=== PATIENT | male | born 1955 | race Caucasian/White ===

== ENCOUNTER 2016-11-21 14:37 | Inpatient (IN) ==
[2016-11-21] MEDS ORDERED: TORADOL IVP STA (14:43)
[2016-11-21] MEDS ORDERED: ATROPINE SULFATE PFS IVP PRN (14:44)
[2016-11-21] MEDS ORDERED: TYLENOL PO PRN (14:44)
[2016-11-21] MEDS ORDERED: MORPHINE 4 MG/ML SYRINGE IVP PRN (14:44)
[2016-11-21] MEDS ORDERED: NITROSTAT SL PRN (14:44)
[2016-11-21] MEDS ORDERED: VISTARIL INJ IM PRN (14:44)
[2016-11-21 14:46] LABS: ABG BASE EXCESS 4 (-2.0-2.0); ABG HCO3 28.5 (22.0-26.0); ABG PCO2 41.9 mmHg (35-45); ABG PH 7.441 (7.35-7.45); ABG TCO2 30 (22.0-28.0)
[2016-11-21] MEDS ORDERED: DECADRON 4 MG/ML SDV IM STA (14:46)
[2016-11-21] MEDS ORDERED: ROCEPHIN 1 GM in SODIUM CHLORIDE 50 ML IV STA (14:47)
[2016-11-21] MEDS: DEXTROSE 5%-1/2NS IV SOLUTION 1,000 ML IV SCH (15:39)
[2016-11-21 15:50] LABS: BASOPHILS # (AUTO) 0.1 K/uL (0-0.2); BASOPHILS % (AUTO) 0.5 % (0.0-3.0); EOSINOPHILS # (AUTO) 0.7 K/ul (0.0-0.7); EOSINOPHILS % (AUTO) 6.4 % (0.0-7.0); HEMATOCRIT 25.9 % (42.0-52.0); HEMOGLOBIN 8.6 g/dl (14.0-18.0); IMMATURE GRANULOCYTE % (AUTO) 1.7 % (0.0-5.0); LYMPHOCYTES # (AUTO) 1.3 K/uL (0.60-3.4); LYMPHOCYTES % (AUTO) 12.4 (10.0-50.0); MEAN CORPUSCULAR HEMOGLOBIN 29.9 pg (27.0-31.0); MEAN CORPUSCULAR HGB CONC 33.2 (31.8-35.4); MEAN CORPUSCULAR VOLUME 89.9 fl (80.0-94.0); MONOCYTES % (AUTO) 9.4 (0-10); NEUTROPHILS # (AUTO) 7.3 K/ul (2.0-6.9); NEUTROPHILS % (AUTO) 69.6; PLATELET COUNT 396 10^3/uL (140-440); RED BLOOD COUNT 2.88 10^6/ul (4.70-6.10); WHITE BLOOD COUNT 10.44 K/ul (4.2-10.2)
[2016-11-21] MEDS ORDERED: NON-FORMULARY MEDICATION (Guaifenesin [Mucinex] 1,200 MG) PO PRN ×22 (16:16)
[2016-11-21] MEDS ORDERED: PROAIR HFA IH PRN (16:16)
[2016-11-21] MEDS ORDERED: OXYCODONE PO PRN (16:16)
[2016-11-21] MEDS ORDERED: MUCINEX PO PRN (16:26)
[2016-11-21 16:33] LABS: ALBUMIN 2.6 g/dL (3.4-5.0); ALBUMIN/GLOBULIN RATIO 0.72; ANION GAP 12.7; BILIRUBIN,TOTAL 0.79 mg/dL (0.00-1.20); BUN/CREATININE RATIO 8.97; CALCIUM 9.2 mg/dL (8.2-10.2); CREATININE 0.78 mg/dL (0.60-1.10); POTASSIUM 3.7 mmol/L (3.5-5.1); TOTAL PROTEIN 6.2 g/dL (5.8-8.1); TROPONIN I 0.049 ng/ml (0.0000-0.4000)
--- NOTE | 2016-11-21 16:38 | DI ---
EXAM: Single frontal view of the chest HISTORY: Cough with pleuritic pain. COMPARISON: None FINDINGS: Cardiomediastinal silhouette is upper limit of normal. Sternotomy wires are present. The re is no pneumothorax. There is mild blunting the costophrenic angles with linear left lower lobe f ocal fibrosis. There is no acute consolidation. Minimal left lower lobe ground-glass is identified . There is left-sided pleural thickening, best seen laterally. The osseous structures are unremark able. IMPRESSION: 1. No acute consolidation with changes suggestive of chronic obstructive pulmonary disease and mini mal left lower lobe fibrosis. Left pleural thickening may represent fibrosis versus effusion. 2. Minimal left lower lobe ground-glass may represent atelectasis versus infection.
[2016-11-21] MEDS: XOPENEX 1.25 MG NEB SCH ×2 (17:08→23:14)
[2016-11-21 17:26] VITALS: BMI 25.9
[2016-11-21] MEDS: PROTONIX PO SCH (18:37)
[2016-11-21] MEDS: COLACE PO SCH ×2 (18:37→20:49)
[2016-11-21 19:58] LABS: BILIRUBIN,URINE Negative (NEGATIVE); KETONES,URINE Negative (NEGATIVE); LEUKOCYTE ESTERASE ,URINE Negative (NEGATIVE); NITRITE,URINE Negative (NEGATIVE); PH,URINE 6.5 (5-9); PROTEIN,URINE Negative (NEGATIVE); URINE, BLOOD Negative (NEGATIVE)
[2016-11-21 19:59] LABS: ADD URINE MICROSCOPIC NO
[2016-11-21] MEDS ORDERED: FISH OIL PO SCH (21:00)
[2016-11-21] MEDS ORDERED: DHA PO SCH (21:00)
[2016-11-21] MEDS ORDERED: EPA PO SCH (21:00)
[2016-11-21] MEDS: OMEGA-3 FISH OIL PO SCH (21:28)
[2016-11-21] MEDS: LOPRESSOR PO SCH (21:28)
[2016-11-21] MEDS: GARLIC PO SCH (21:29)
[2016-11-21] MEDS: CORDARONE PO SCH (21:29)
[2016-11-21] MEDS: PHENERGAN WITH CODEINE 6.25/10 MG/5 ML PO SCH (21:30)
[2016-11-21 22:46] LABS: TROPONIN I 0.056 ng/ml (0.0000-0.4000)
[2016-11-22 00:14] LABS: HEMATOCRIT 28.6 % (42.0-52.0); HEMOGLOBIN 9.5 g/dl (14.0-18.0)
[2016-11-22] MEDS: XOPENEX 1.25 MG NEB SCH ×4 (05:06→23:06)
[2016-11-22 05:43] LABS: BASOPHILS % (AUTO) 0.3 % (0.0-3.0); EOSINOPHILS % (AUTO) 0.4 % (0.0-7.0); HEMATOCRIT 28.5 % (42.0-52.0); HEMOGLOBIN 9.6 g/dl (14.0-18.0); IMMATURE GRANULOCYTE % (AUTO) 1.9 % (0.0-5.0); LYMPHOCYTES # (AUTO) 1.1 K/uL (0.60-3.4); LYMPHOCYTES % (AUTO) 10.5 (10.0-50.0); MEAN CORPUSCULAR HEMOGLOBIN 30.1 pg (27.0-31.0); MEAN CORPUSCULAR HGB CONC 33.7 (31.8-35.4); MEAN CORPUSCULAR VOLUME 89.3 fl (80.0-94.0); MONOCYTES # (AUTO) 0.7 K/uL (0.4-2.0); MONOCYTES % (AUTO) 7.1 (0-10); NEUTROPHILS # (AUTO) 8.1 K/ul (2.0-6.9); NEUTROPHILS % (AUTO) 79.8; PLATELET COUNT 395 10^3/uL (140-440); RED BLOOD COUNT 3.19 10^6/ul (4.70-6.10); WHITE BLOOD COUNT 10.16 K/ul (4.2-10.2)
[2016-11-22] MEDS: PROTONIX PO SCH (05:57)
[2016-11-22 06:09] LABS: ALBUMIN 2.4 g/dL (3.4-5.0); ALBUMIN/GLOBULIN RATIO 0.69; ANION GAP 15.2; BILIRUBIN,TOTAL 0.56 mg/dL (0.00-1.20); BUN/CREATININE RATIO 12.34; CREATININE 0.81 mg/dL (0.60-1.10); POTASSIUM 4.2 mmol/L (3.5-5.1); TOTAL PROTEIN 5.9 g/dL (5.8-8.1)
[2016-11-22] MEDS ORDERED: LISINOPRIL PO SCH (09:00)
[2016-11-22] MEDS ORDERED: NON-FORMULARY MEDICATION (Atorvastatin Calcium [Atorvastatin Calcium] 40 MG) PO SCH ×22 (09:00)
[2016-11-22] MEDS: ROCEPHIN 1 GM in SODIUM CHLORIDE 50 ML IV SCH (10:24)
[2016-11-22] MEDS: DEXTROSE 5%-1/2NS IV SOLUTION 1,000 ML IV SCH (10:24)
[2016-11-22] MEDS: DECADRON 4 MG/ML SDV IM SCH (10:25)
[2016-11-22] MEDS: GARLIC PO SCH ×2 (10:26→20:56)
[2016-11-22] MEDS: CORDARONE PO SCH ×2 (10:26→20:56)
[2016-11-22] MEDS: LIPITOR PO SCH (10:27)
[2016-11-22] MEDS: ZESTRIL PO SCH (10:27)
[2016-11-22] MEDS: OMEGA-3 FISH OIL PO SCH ×2 (10:27→20:55)
[2016-11-22] MEDS: PLAVIX PO SCH (10:27)
[2016-11-22] MEDS: ASPIRIN EC PO SCH (10:28)
[2016-11-22] MEDS: COLACE PO SCH ×2 (10:28→22:45)
[2016-11-22] MEDS: LOPRESSOR PO SCH ×2 (10:28→20:55)
--- NOTE | 2016-11-22 11:29 | HP ---
DATE OF SERVICE: 11/21/16 REASON FOR HOSPITALIZATION/HISTORY OF PRESENT ILLNESS: Coughing spells with syncope x2 in 24 hours. Greenish sputum x4 days. Hgb and hct 8.6/26 11/21/16on 11/01/16 hgb 17/50.1. Pleuritic pain with cough. Status post CABG 11/13/16 [facility]. REVIEW OF SYSTEMS: CONSTITUTIONAL: Fever and fatigue. HEENT: No sinus drainage, no sore throat. RESPIRATORY: Cough, no congestion. CARDIOVASCULAR: Atypical chest pain for coronary artery disease. No angina, CHF symptoms, palpitations. Shortness of breath. GASTROINTESTINAL: No melena or abdominal pain. No GERD. Appetite not good. GENITOURINARY: No hematuria, no prostatism, no polyuria. DEBEAKER: No blackout, no dizziness, no headache, no double vision. MUSCULOSKELETAL: Osteoarthritis pain, no joint swelling. ENDOCRINE: No weight loss, no weight gain. SKIN: Not dry, no rash. PSYCHIATRIC: Anxious, no depression, no suicidal thoughts, no homicidal thoughts. SOCIAL HISTORY: Marital Status: . Alcohol Usage: Quit 11/09/16. Tobacco Usage: Quit 07/23. FAMILY HISTORY: Father - Wilber Monaco Mother Sister- 1 SURGICAL HISTORY: Appendix age 1 1/2 CABG 11/13/16 MEDICAL HISTORY: History of pleural thickening mass GERD Asthma COPD, quit smoking 11/09/16 Elevated PSA Dyslipidemia MEDICATIONS: ProAir inhaler Nexium twice a day Lipitor 40mg PO daily Oxycodone 5mg Q 4 hours PRN Plavix 75mg PO daily Lisinopril 2.5mg Po daily Amiodarone 200mg PO daily Metoprolol tartrate 25mg twice a day Garlic ASA 81mg PO daily Fish oil Mucinex Flexeril 500mg three times a day PHYSICAL EXAMINATION: V/S: Pulse 84, blood pressure 160/58, temperature 99.3 and pulse ox 95%. GENERAL APPEARANCE: Oriented times three. HEENT: Normal. Pallor NECK: No JVP, no bruits. RESPIRATORY: Lungs are clear. Decreased breath sounds. Creps on left side. CARDIOVASCULAR: S1, S2, no S3, no murmurs. No cyanosis, clubbing. No ascites. GI/ABDOMEN: No tenderness. Bowel sounds are active. EXTREMITIES: edema, pulses +1, equal. DEBEAKER: Deep tendon reflexes, sensory, motor and gait all normal. RECTAL/PELVIC/PROSTATE: . ASSESSMENT: 1. Acute bronchitis/ Pneumonitis 2. Severe Anemia 3. Pleuritic pain 4. Syncope 5. Status post CABG's x4 (11-13-16) Dr. Diana 6. COPD-smoking quit 11/09/16 7. History of hypertension 8. GERD 9. History pleural thickening mass 10.Elevated PSA 11/22 11.Dyslipidemia PLAN: 1. Admit 2. Routine telemetry orders 3. 1cc Decadron IM now 4. Rocephin 1 gram IV push BHAVNA 5. Blood cultures x2 6. Sputum for culture and sensitivity 7. 1000 cc D5 1/2 normal saline 12 hourly 8. BNP 9. Echo 10.Continue all home medication except Keflex 11.Xopenex four times a day 12.T4 and TSH 13.ABG 14.Oxygen 2 liters/ cannula/ per minute 15.Blood transfusion CABG 11/13/16 symptomatic anemia 16.Type and cross match two units of packed red cells. 17. Toradol 20mg IV now. ADDENDUM: LAB test ABG pO2 67, pCO2 41, pH 7.44 with 94% saturation on room air. hgb 8.6, hct 25. The patient was seen around 7:30pm and he is feeling a lot better. The blood transfusion infusing. Bronchitis symptoms are much better. He is coughing much less. No arrhythmias noted. PHYSICAL EXAM LUNGS: Decreased breath sounds but more air entry. HEART: S1, S2 and no S3. he had a good meal and feeling a lot better. Gave Phenergan with codeine for nighttime. Cardiovascular status is stable. The patient had symptoms from hgb of 17 with hct 50. The patient's hgb has dropped to 8.6 to 25 in three weeks. Very likely the blood loss is during surgery and post surgical with nutritional component added to it. CONDITION: Stable. TIME SPENT: More than 70 minutes. MTDD
[2016-11-22] MEDS: PHENERGAN WITH CODEINE 6.25/10 MG/5 ML PO SCH (20:56)
[2016-11-23 04:44] LABS: BASOPHILS % (AUTO) 0.2 % (0.0-3.0); EOSINOPHILS % (AUTO) 0.3 % (0.0-7.0); HEMATOCRIT 27.4 % (42.0-52.0); IMMATURE GRANULOCYTE % (AUTO) 2.2 % (0.0-5.0); LYMPHOCYTES # (AUTO) 1.6 K/uL (0.60-3.4); LYMPHOCYTES % (AUTO) 12.6 (10.0-50.0); MEAN CORPUSCULAR HEMOGLOBIN 29.5 pg (27.0-31.0); MEAN CORPUSCULAR HGB CONC 32.8 (31.8-35.4); MEAN CORPUSCULAR VOLUME 89.8 fl (80.0-94.0); MONOCYTES % (AUTO) 7.7 (0-10); PLATELET COUNT 392 10^3/uL (140-440); RED BLOOD COUNT 3.05 10^6/ul (4.70-6.10)
[2016-11-23 05:02] LABS: ALBUMIN 2.5 g/dL (3.4-5.0); ALBUMIN/GLOBULIN RATIO 0.78; ANION GAP 12.9; BILIRUBIN,TOTAL 0.34 mg/dL (0.00-1.20); BUN/CREATININE RATIO 10.81; CALCIUM 8.7 mg/dL (8.2-10.2); CREATININE 0.74 mg/dL (0.60-1.10); POTASSIUM 3.9 mmol/L (3.5-5.1); TOTAL PROTEIN 5.7 g/dL (5.8-8.1)
[2016-11-23] MEDS: XOPENEX 1.25 MG NEB SCH (05:22)
[2016-11-23] MEDS: PROTONIX PO SCH (05:30)
[2016-11-23 05:36] VITALS: BP 125/69; TEMP 97.1
[2016-11-23] MEDS: ROCEPHIN 1 GM in SODIUM CHLORIDE 50 ML IV SCH (09:35)
[2016-11-23] MEDS: GARLIC PO SCH (09:35)
[2016-11-23] MEDS: CORDARONE PO SCH (09:35)
[2016-11-23] MEDS: LOPRESSOR PO SCH (09:36)
[2016-11-23] MEDS: OMEGA-3 FISH OIL PO SCH (09:36)
[2016-11-23] MEDS: LIPITOR PO SCH (09:36)
[2016-11-23] MEDS: PLAVIX PO SCH (09:36)
[2016-11-23] MEDS: ZESTRIL PO SCH (09:36)
[2016-11-23] MEDS: ASPIRIN EC PO SCH (09:36)
[2016-11-23] MEDS: COLACE PO SCH (09:36)
[2016-11-23] MEDS: DECADRON 4 MG/ML SDV IM SCH (09:37)
--- NOTE | 2016-11-23 10:11 | CM.DICTOOL ---
ADMISSION: 11/21/16 14:37 DISCHARGE: 11/23/16 FINAL DIAGNOSIS SEVERE ANEMIA SYNCOPE HISTORY OF: ASTHMA KIDNEY STONES ACUTE BRONCHITIS COPD DYSLIPIDEMIA ELEVATED PSA SURGICAL HISTORY: CABG X 4 11/13/16 APPENDECTOMY DATE UNKNOWN LAST VITALS Temp Pulse Resp BP Pulse Ox 97.1 F L 74 21 125/69 97 11/23/16 05:34 11/23/16 05:34 11/23/16 05:34 11/23/16 05:34 11/23/16 05:34 ACTIVE MEDICATIONS Albuterol Sulfate (Proair Hfa) 1 puff IH Q6H PRN PRN Reason: SOA Amiodarone HCl (Cordarone) 200 mg PO BID [facility] Last Admin: 11/22/16 20:56 Dose: 200 mg Aspirin (Aspirin Ec) 81 mg PO DAILYWM [facility] Last Admin: 11/22/16 10:28 Dose: 81 mg Atorvastatin Calcium (Lipitor) 40 mg PO DAILY [facility] Last Admin: 11/22/16 10:27 Dose: 40 mg Clopidogrel Bisulfate (Plavix) 75 mg PO DAILY [facility] Last Admin: 11/22/16 10:27 Dose: 75 mg Fish Oil (Porter-3 Fish Oil) 1,000 mg PO BID [facility] Last Admin: 11/22/16 20:55 Dose: 1,000 mg Guaifenesin (Mucinex) 1,200 mg PO BID PRN PRN Reason: CONGESTION Lisinopril (Zestril) 2.5 mg PO DAILY [facility] Last Admin: 11/22/16 10:27 Dose: 2.5 mg Metoprolol Tartrate (Lopressor) 12.5 mg PO BID [facility] Last Admin: 11/22/16 20:55 Dose: 12.5 mg Non-Formulary Medication (Garlic [Garlic]) 1 cap PO BID [facility] Last Admin: 11/22/16 20:56 Dose: 1 cap Oxycodone HCl (Oxycodone) 5 mg PO Q4H PRN PRN Reason: pain ALLERGIES No Known Allergies Allergy (Unverified 11/21/16 15:49) NEW PRESCRIPTIONS: NEW MEDS KELFEX 500MG PO TID X 6 DAYS -USE WHAT YOU HAVE AT HOME PREDNISONE 10MG PO DAILY X 5 DAYS PHENERGAN WITH CODIENE 2 TEASPOONS QID PRN FOR 5 DAYS IRON 325MG PO BID X 30 DAYS PROTONIX 40MG PO DAILY X 3 WEEKS SMOKING: DO NOT SMOKE. AVOID SECOND HAND SMOKE. DISEASE SPECIFIC EDUCATION: HEART DISEASE SYNCOPE ANEMIA MEDICATIONS SMOKING LAB REVIEW: 11/23/16 04:30 11/23/16 04:30 11/23/16 04:30: WBC 13.00 H, RBC 3.05 L, Hgb 9.0 L, Hct 27.4 L, MCV 89.8, MCH 29.5, MCHC 32.8, RDW Coeff of Martha 15.0 H, Plt Count 392, Immature Gran % (Auto) 2.2, Neut % (Auto) 77.0, Lymph % (Auto) 12.6, Young % (Auto) 7.7, Eos % (Auto) 0.3, Baso % (Auto) 0.2, Immature Gran # (Auto) 0.3, Neut # 10.0 H, Lymph # 1.6, Young # 1.0, Eos # 0.0, Baso # 0.0, Sodium 143, Potassium 3.9, Chloride 106, Carbon Dioxide 28, Anion Gap 12.9, BUN 8, Creatinine 0.74, Estimated GFR (MDRD) 107.00, BUN/Creatinine Ratio 10.81, Glucose 124 H D, Calcium 8.7, Total Bilirubin 0.34, AST 19, ALT 32, Alkaline Phosphatase 101, Total Protein 5.7 L, Albumin 2.5 L, Globulin 3.2, Albumin/Globulin Ratio 0.78 PLAN: DISCHARGE HOME TODAY. CONTINUE HOME MEDS PER NURSING SHEET. NEW MEDICATIONS: 1. MUCINEX 1,200MG TAKE 1 TAB BY MOUTH 2 TIMES A DAY 2. KEFLEX 500MG TAKE 1 TAB BY MOUTH 3 TIMES A DAY FOR 7 DAYS 3. PREDNISONE 10MG TAKE 1 TAB BY MOUTH DAILY FOR 5 DAYS 4. PHENERGAN WITH CODEINE TAKE 2 TEASPOONS BY MOUTH 4 TIMES A DAY NEEDED FOR COUGH FOR 5 DAYS 5. IRON 325MG TAKE 1 TAB BY MOUTH 2 TIMES A DAY FOR 30 DAYS 6. PROTONIX 40MG TAKE 1 TAB BY MOUTH DAILY FOR 3 WEEKS GRADUALLY RESUME ACTIVITY DIET TOLERATED KEEP YOUR APPOINTMENT WITH DR. STEEL ON SATURDAY ALERT AND ORIENTED X 4. SPOUSE AT BEDSIDE. DENIES ANY DIZZINESS OR SYNCOPAL EPISODES FOR OVER 24 HOURS. APPETITE IS GOOD. VITAL SIGNS ARE STABLE. IS AFEBRILE. HEART TONES ARE REGULAR WITH TELEMETRY REVEALS SINUS RHYTHM. DENIES CHEST PAIN. LUNGS ARE CLEAR WITH COARSE BREATH SOUNDS. CONTINUES WITH PRODUCTIVE COUGH OF WHITE SPUTUM. DENIES DYSPNEA. ABDOMEN IS SOFT, NON-TENDER WITH BOWEL SOUNDS POSITIVE IN ALL 4 QUADS. PEDAL PULSES POSITIVE WITH NON- PITTING EDEMA TO BILATERAL LOWER EXTREMITIES. CONTINUES TO HAVE RED, RAISED FIRM AREA TO RIGHT FOREARM POA. NO S/S OF INFECTION AT PRESENT. HAS INCISION TO CHEST FROM CABG. IS WELL APPROXIMATED AND WITHOUT S/S OF INFECTION. HAS IV OF D51/2 NORMAL SALINE AT 83ML/HR IN LEFT FOREARM SITE IS CLEAN AND DRY. IS INDEPENDENT WITH ACTIVITIES OF DAILY LIVING WITH STEADY GAIT. DR. DAMIÁN BROWNING Herbert RANDHAWA APRN
--- NOTE | 2016-11-23 11:12 | ECHO2D ---
Date of Exam: 11/23/16 Ordering Physician: LALITO STEEL Reason for Echo: SYNCOPE, CORONARY BYPASS M-Mode Normal Adult Results LV Dimensions Normal Adult Results AoV Opening excursions >1.6 >1.6 LVEDD-base- 3.5-5.8 5.1 Ao root dimensions 2.0-3.7 3.5 LVESD-base- 3.1-4.6 L. Atrium dimensions 1.9-3.8 3.9 Post. Wall thickness 0.8-1.1 1.2 IV septum (thickness) 0.7-1.2 1.2 Post. Wall excursion 0.72-1.3 NORMAL Septal motion 0.4 Systolic motion R. Ventricular cavity 1.5-2.0 NORMAL LVEF 60% 50% Paradoxical septal wall motion NORMAL 2-D : HYPOKINETIC SEPTAL WALL--NORMAL VALVES--NORMAL LEFT ATRIAL AND LEFT VENTRICLE SIZE--NO THROMBUS, NO EFFUSION M-MODE: MV: NORMAL AV: NORMAL TV: NORMAL PV: CHAMBER SIZE: NORMAL WALL MOTION: HYPOKINETIC SEPTUM PERICARDIUM: NORMAL INTERPRETATION: 1. LEFT VENTRICULAR HYPERTROPHY BORDERLINE 2. HYPOKINETIC SEPTAL WALL--LEFT VENTRICULAR EJECTION FRACTION 50% MTDD
--- NOTE | 2016-11-29 15:17 | PN ---
DATE OF SERVICE: 11/22/16 SUBJECTIVE: The patient is a 61 year old white male hospitalized with severe anemia, symptomatic with near syncopal episode. The patient is given one unit packed red cells. Hgb is now 9.6, hct 20. The patient is feeling better. The patient is also on antibiotics, steroids and IV fluids. The patient's condition has improved. REVIEW OF SYSTEMS: CONSTITUTIONAL: No night sweats. No fatigue, malaise, lethargy. No fever or chills. HEENT: Eyes: No visual changes. No eye pain. No eye discharge. ENT: No runny nose. No epistaxis. No sinus pain. No sore throat. No odynophagia. No congestion. RESPIRATORY: Cough is much less than before, no congestion. No hemoptysis. No shortness of breath. CARDIOVASCULAR: No angina symptoms. No CHF symptoms. No atypical chest pain for CAD. No palpitations. No orthopnea. No PND. GASTROINTESTINAL: No abdominal pain. No nausea or vomiting. No diarrhea or constipation. No hematemesis. No hematochezia. Appetite has improved. GENITOURINARY: No urgency. No frequency. No dysuria. No hematuria. No obstructive symptoms. No discharge. No pain. No significant abnormal bleeding. MUSCULOSKELETAL: No musculoskeletal pain; no joint swelling. NEUROLOGICAL: No headache. No neck pain. No syncope. No seizures. No dizziness. PSYCHIATRIC: Not anxious. No depression. No suicidal thoughts. No homicidal thoughts. SKIN: No rash. No lesions. No wounds. ENDOCRINE: No unexplained weight loss. No weight gain. HEMATOLOGIC/LYMPHATIC: No anemia. No purpura. No petechiae. No prolonged or excessive bleeding. No palpable lymph nodes. PHYSICAL EXAMINATION: GENERAL: The patient is oriented to time, place and person. VITAL SIGNS: Temperature 97.8, pulse 76, respiratory rate 18, blood pressure 121/74 and pulse ox 95%. HEENT: Head normocephalic, atraumatic. Eyes: Extraocular muscles are intact. Pupils are equal, round and reactive to light and accommodation. Ears: No lesions. Nose appeared normal. Throat: No exudate or erythema. NECK: Supple. No JVD, no carotid bruit. No lymphadenopathy or thyromegaly. LUNGS: Decreased breath sounds but clear to auscultation. Percussion note normal. Chest symmetrical. HEART: S1, S2, no S3. No murmurs. No cyanosis or clubbing. No ascites. Pulses: Dorsalis pedis and posterior tibial pulses +1 to +2 both sides. ABDOMEN: Soft. Nontender. Bowel sounds active. No CVA tenderness. No mass felt. EXTREMITIES: No edema. Full range of motion of all extremities, equal. NEUROLOGIC: No focal deficit. Cranial nerves II through XII are grossly intact. No headache, no double vision or headache. SKIN: Not dry. Intact. Turgor - normal. LYMPHATIC: No palpable lymph nodes/no lymphedema. MUSCULOSKELETAL: Normal joints with no swelling. Muscle tone is normal. LABS: hgb 9.6, hct 28, WBC 10,000 normal differential, creatinine 0.8, BUN 10, potassium 4.2, glucose 186. ASSESSMENT: 1. Anemia, seems to be stable. No evidence of active GI Bleed 2. Acute bronchitis under control 3. Chronic lung disease, no syncopal episode anymore with coughing spelling. PLAN: 1. Give Iron supplements 2. Continue Protonix 3. Continue Antibiotics 4. Continue Steroids 5. Continue monitor CBC and CMP 6. Continue to Monitor telemetry with Cardiac rhythm 7. Will do A1c The patient's as usual is in the room and discussed with case. The patient has not smoked for a while. TIME SPENT: More than 30 minutes. Plan and coordination of the patient's care discussed in the presence of nurse. JANNA
--- NOTE | 2016-12-03 09:54 | DS ---
DATE OF SERVICE: 11/23/16 FINAL DIAGNOSIS: 1. SEVERE ANEMIA 2. SYNCOPE 3. ACUTE BRONCHITIS/COPD/DYSLIPIDEMIA/ELEVATED PSA 4. HISTORY OF ASTHMA 5. HISTORY OF KIDNEY STONES 6. HISTORY OF CABG TIMES FOUR, 11/13/16 7. APPENDECTOMY, DATE UNKNOWN DISCHARGE INSTRUCTIONS: Followup appointment: Keep your appointment with Dr. Malagon on Saturday. MEDICATIONS AT DISCHARGE: 1. Cephalexin 500 mg p.o. t.i.d. 2. Atorvastatin 40 mg p.o. daily 3. Amiodarone 200 mg one tablet p.o. b.i.d. 4. Oxycodone 5 mg one tab p.o. 4hr p.r.n. 5. Lisinopril 2.5 mg one tab p.o. daily 6. Metoprolol (Lopressor) 12.5 mg p.o. b.i.d. 7. Clopidogrel 75 mg one tab p.o. daily 8. Garlic 1,000 mg one cap p.o. b.i.d. 9. Albuterol one puff IH q.6hr p.r.n. 10. Fish Oil/DHA/EPA one tab p.o. b.i.d. NEW PRESCRIPTIONS: 1. Mucinex 1,200 mg take one tab by mouth two times a day 2. Keflex 500 mg take one tab by mouth three times a day for 7 days 3. Prednisone 10 mg take one tab by mouth daily for 5 days 4. Phenergan with Codeine take two teaspoons by mouth four times a day as needed for cough for five days 5. Iron 325 mg take one tab by mouth two times a day for 30 days 6. Protonix 40 mg take one tab by mouth daily for three weeks DIET INSTRUCTIONS: As patient tolerates. ACTIVITY: Gradually resume activity. SMOKING: Do not smoke. Avoid secondhand smoke. DISEASE SPECIFIC EDUCATION: Heart disease Syncope Anemia Medications Smoking HOSPITAL COURSE: 61-year-old white male was seen in the office with acute bronchitis and coughing spells followed by syncopal episodes where the patient would almost lose consciousness for a few moments. The patient had 2 to 3 spells like that. The patient had CBC done when he was seen for the first time when he walked in after his bypass surgery. It was reported as 8.6 with hematocrit of 24. The patient's hemoglobin use to be 17 with hematocrit of 51, dropped within three weeks post surgical. The patient was given one unit of packed red cells. He didn 't have any evidence of active GI bleed. The patient was put on Protonix, put on antibiotics, IV steroids. His condition improved and he felt a lot better. Bronchitis symptoms resolved. His appetite improved. He did not have any arrhythmias of any significance, mostly syncopal type of episodes were related to coughing bouts. The patient was discharged home on antibiotics, steroids, Protonix, iron supplements along with other medications. LABS: Hemoglobin on discharge 9 with hematocrit 27. The patient is to be seen in 4 to 5 days on followup. The patient is to undergo echo before discharge. CONDITION AT TIME OF DISCHARGE: Stable. TIME SPENT: More than 60 minutes. STEFANOD
--- NOTE | 2016-12-03 09:56 | PN ---
CODING FOR BILLING 11/21/16 LEVEL 5 11/22/16 INTERMEDIATE 11/23/16 DISCHARGE MTDD
--- NOTE | 2016-12-04 10:57 | PN ---
DATE OF SERVICE: 11/23/16 SUBJECTIVE: This is a 61-year-old white male hospitalized with near syncopal episode. The patient had acute bronchitis with chronic lung disease and also severe anemia. The patient received one unit of packed red cells. His hemoglobin is stable. No evidence of active GI bleed. The patient very likely had a lot of postop blood loss. His hemoglobin now is 9 with hematocrit of 27. He is feeling a lot better. His bronchitis symptoms have practically resolved. He hasn't had any syncopal episode. His appetite has improved. The is in the room. REVIEW OF SYSTEMS: CONSTITUTIONAL: No night sweats. No fatigue, malaise, lethargy. No fever or chills. HEENT: Eyes: No visual changes. No eye pain. No eye discharge. ENT: No runny nose. No epistaxis. No sinus pain. No sore throat. No odynophagia. No congestion. RESPIRATORY: No cough, no congestion. No hemoptysis. No shortness of breath. CARDIOVASCULAR: No angina symptoms. No CHF symptoms. No atypical chest pain for CAD. No palpitations. No orthopnea. GASTROINTESTINAL: No abdominal pain. No nausea or vomiting. No diarrhea or constipation. No hematemesis. No hematochezia. GENITOURINARY: No urgency. No frequency. No dysuria. No hematuria. No obstructive symptoms. No discharge. No pain. No significant abnormal bleeding. MUSCULOSKELETAL: No musculoskeletal pain; no joint swelling. NEUROLOGICAL: No headache. No neck pain. No syncope. No seizures. No dizziness. PSYCHIATRIC: Not anxious. No depression. No suicidal thoughts. No homicidal thoughts. SKIN: No rash. No lesions. No wounds. ENDOCRINE: No unexplained weight loss. No weight gain. HEMATOLOGIC/LYMPHATIC: No anemia. No purpura. No petechiae. No prolonged or excessive bleeding. No palpable lymph nodes. PHYSICAL EXAMINATION: GENERAL: The patient is oriented to time, place and person. VITAL SIGNS: Temperature 97.1, pulse 74, respiratory rate 21, BP 125/70, pulse ox 97%. HEENT: Head normocephalic, atraumatic. Eyes: Extraocular muscles are intact. Pupils are equal, round and reactive to light and accommodation. Ears: No lesions. Nose appeared normal. Throat: No exudate or erythema. NECK: Supple. No JVD, no carotid bruit. No lymphadenopathy or thyromegaly. LUNGS: Decreased breath sounds. Clear to auscultation. Percussion note normal. Chest symmetrical. HEART: S1, S2, no S3. No murmurs. No cyanosis or clubbing. No ascites. Pulses: Dorsalis pedis and posterior tibial pulses +1 to +2 both sides. ABDOMEN: Soft. Nontender. Bowel sounds active. No CVA tenderness. No mass felt. EXTREMITIES: No edema. Full range of motion of all extremities, equal. NEUROLOGIC: No focal deficit. Cranial nerves II through XII are grossly intact. No headache, no double vision or headache. SKIN: Not dry. Intact. Turgor - normal. LYMPHATIC: No palpable lymph nodes/no lymphedema. MUSCULOSKELETAL: Normal joints with no swelling. Muscle tone is normal. LABS: Hemoglobin 9, hematocrit 27, WBC 13,000, normal differential. Creatinine 0.7, BUN 8, potassium 3.9. BNP 390, T4, TSH acceptable. ASSESSMENT: 1. ACUTE BRONCHITIS WITH CHRONIC LUNG DISEASE RESOLVED. THE PATIENT HAS QUIT SMOKING. 2. SEVERE ANEMIA UNDER CONTROL POSTOP. 3. SYNCOPE, RESOLVED, LIKELY FROM ANEMIA. 4. CORONARY ARTERY BYPASS SURGERY, 11/13/16. 5. DYSLIPIDEMIA. 6. HYPERGLYCEMIA FROM STEROIDS. A1C WAS 5.6 DONE YESTERDAY. PLAN: 1. Discharge home on antibiotics, steroids, Protonix, iron supplements. 2. Continue the rest of the medications. CONDITION: Stable. TIME SPENT: More than 30 minutes. Plan and coordination of the patient's care discussed in the presence of nurse. JANNA
== END 2016-11-23 11:28 | disposition home or self-care (01) | DRG 812 ==
LOC: SCU 14:37
PROVIDERS: ADMIT Internal Medicine; ATTEND Internal Medicine
PROC: 30233N1 Transfusion of Nonautologous Red Blood Cells into Peripheral Vein, Percutaneous Approach (ICD-10-PCS; principal; 2016-11-21)
DX: D64.9 Anemia, unspecified (principal); J44.0 Chronic obstructive pulmonary disease with (acute) lower respiratory infection; R55 Syncope and collapse; J20.9 Acute bronchitis, unspecified; R05 Cough; R07.81 Pleurodynia; E78.5 Hyperlipidemia, unspecified; R97.20 Elevated prostate specific antigen [PSA]; Z95.1 Presence of aortocoronary bypass graft; Z87.09 Personal history of other diseases of the respiratory system; Z79.02 Long term (current) use of antithrombotics/antiplatelets; Z79.899 Other long term (current) drug therapy; Z87.891 Personal history of nicotine dependence
CPT/HCPCS: 36415; 36430; 80053; 81001; 82550; 82803; 83036; 83874; 83880; 84439; 84443; 84484; 85014; 85018; 85025; 86850; 86900; 86922; 87040; 87070; 87081; 93005; 93010; 94640; 99223; 99232; 99239

== ENCOUNTER 2017-02-06 06:39 | Outpatient (RCR) ==
[2017-02-04 07:50] VITALS: BMI 25.7
[2017-03-06 08:57] VITALS: BP 126/64
== END 2017-03-07 ==
LOC: CAR.REHAB 06:39
PROVIDERS: ATTEND Internal Medicine
DX: Z95.1 Presence of aortocoronary bypass graft (principal)
CPT/HCPCS: 93798

== ENCOUNTER 2017-03-08 06:23 | Outpatient (RCR) ==
[2017-02-04 07:50] VITALS: BMI 25.7
[2017-04-05 08:59] VITALS: BP 146/58
== END 2017-04-07 ==
LOC: CAR.REHAB 06:23
PROVIDERS: ATTEND Internal Medicine
DX: Z95.1 Presence of aortocoronary bypass graft (principal)
CPT/HCPCS: 93798

== ENCOUNTER 2017-04-09 07:48 | Outpatient (RCR) | payer OTHER ==
[2017-02-04 07:50] VITALS: BMI 25.7
[2017-05-08 09:09] VITALS: BP 132/64
== END 2017-05-08 ==
LOC: CAR.REHAB 07:48
PROVIDERS: ATTEND Internal Medicine
DX: Z95.1 Presence of aortocoronary bypass graft (principal)
CPT/HCPCS: 93798

== ENCOUNTER 2017-05-09 07:11 | Outpatient (RCR) ==
[2017-02-04 07:50] VITALS: BMI 25.7
[2017-05-24 09:10] VITALS: BP 138/60
== END 2017-05-24 13:13 | disposition home or self-care (01) ==
LOC: CAR.REHAB 07:11
PROVIDERS: ATTEND Internal Medicine
DX: Z95.1 Presence of aortocoronary bypass graft (principal)
CPT/HCPCS: 93798

== ENCOUNTER 2017-09-04 10:11 | Outpatient (CLI) ==
[2017-02-04 07:50] VITALS: BMI 25.7
== END 2017-09-04 10:12 | disposition home or self-care (01) ==
LOC: LAB 10:11
PROVIDERS: ATTEND Internal Medicine
DX: E78.5 Hyperlipidemia, unspecified (principal); I10 Essential (primary) hypertension; I25.10 Atherosclerotic heart disease of native coronary artery without angina pectoris; Z12.5 Encounter for screening for malignant neoplasm of prostate
CPT/HCPCS: 36415; 80053; 80061; 83036; 84443; 85025

== ENCOUNTER 2017-10-14 07:16 | Day surgery (SDC) ==
[2017-02-04 07:50] VITALS: BMI 25.7
[2017-10-14] MEDS: CYCLOGYL 2% OPTH OP PRN ×3 (08:36→08:47)
[2017-10-14] MEDS: TETRACAINE 0.5% UNIT-DOSE OP PRN ×3 (08:36→10:28)
[2017-10-14] MEDS: AK-DILATE 10% OPTH SOL OP PRN ×3 (08:37→08:47)
[2017-10-14] MEDS: OCUFEN 0.03% OPTH SOL OP PRN ×2 (08:37→08:52)
[2017-10-14 08:45] VITALS: TEMP 97.5
[2017-10-14] MEDS: LIDOCAINE 1% 20 ML MDV ID STA ×2 (08:50→09:01)
[2017-10-14] MEDS ORDERED: BETADINE OPTH PREP OP ONE (08:50)
[2017-10-14] MEDS ORDERED: DIAMOX PO STA (08:50)
[2017-10-14] MEDS ORDERED: VERSED ONE (10:30)
[2017-10-14] MEDS ORDERED: SUBLIMAZE ONE (10:30)
[2017-10-14] MEDS ORDERED: BSS WITH EPINEPHRINE OP ONE (10:40)
[2017-10-14] MEDS ORDERED: LIDOCAINE HCL 1% SDV INJ PRN (10:40)
[2017-10-14] MEDS ORDERED: DIAMOX ONE (11:30)
--- NOTE | 2017-10-15 09:14 | OP ---
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 POSTOPERATIVE DIAGNOSIS: SAME. OPERATION PHACOEMULSIFICATION ASPIRATION OF CATARACT LEFT EYE. PLACEMENT OF POSTERIOR CHAMBER LENS. PHACO TIME 45.8 SECONDS AT 10% POWER. LENS MODEL TECDUONG [id number]. DIOPTER +22.5D. TECHNIQUE: CLEAR CORNEA. ANESTHESIA: TOPICAL ANESTHESIA W/ANESTHESIA MONITORING. OPERATIVE REPORT: Topical anesthesia consisting of Tetracaine was applied to the cornea and Xylocaine Methyl Paraben free of MFP was injected intracamerally into the anterior chamber. The patient was then brought into the operating room , prepped and draped in the usual ophthalmic manner. A lid speculum was placed and the operating microscope was used. A paracentesis was made at the 3 o' clock position. A clear corneal incision was made just out to the limbus. The anterior chamber was entered just inside the clear cornea. Viscoelastic was injected into the anterior chamber. A capsulotomy was performed with a bent # 27 gauge needle. Phacoemulsification was then performed in the posterior chamber. After completion of the phacoemulsification, residual cortical material was aspirated with the irrigation-aspiration system. The posterior capsule was polished. Viscoelastic was injected into the anterior and posterior chambers to inflate the capsular bag. Lens were placed via an Unfolder system and stabilized in the bag. Viscoelastic was removed from the anterior chamber. The wound was checked for any leakage. The four sponges were removed from the fornix. Topical antibiotic steroid and nonsteroidal drops were also applied to the cornea. A Rey shield was applied. The patient left the operating room in good condition without any complications. INTRAOPERATIVE MEDICATIONS: Xylocaine Methyl Paraben Free MPF MTDD
[2017-10-17 11:46] VITALS: BP 119/67
== END 2017-10-14 11:35 | disposition home or self-care (01) ==
LOC: SURG 07:16
PROVIDERS: ATTEND Ophthalmology
DX: H25.13 Age-related nuclear cataract, bilateral (principal); H25.013 Cortical age-related cataract, bilateral; H26.102 Unspecified traumatic cataract, left eye

== ENCOUNTER 2017-11-18 06:11 | Day surgery (SDC) ==
[2017-02-04 07:50] VITALS: BMI 25.7
[2017-11-18] MEDS ORDERED: LIDOCAINE 1% 20 ML MDV ID STA (06:42)
[2017-11-18] MEDS ORDERED: DIAMOX PO STA (06:42)
[2017-11-18] MEDS: AK-DILATE 10% OPTH SOL OP PRN ×3 (06:50→07:00)
[2017-11-18] MEDS: CYCLOGYL 2% OPTH OP PRN ×3 (06:50→07:00)
[2017-11-18] MEDS: TETRACAINE 0.5% UNIT-DOSE OP PRN ×3 (06:50→07:51)
[2017-11-18 07:06] VITALS: TEMP 97.3
[2017-11-18] MEDS ORDERED: SUBLIMAZE ONE (07:45)
[2017-11-18] MEDS ORDERED: VERSED ONE (07:45)
[2017-11-18] MEDS ORDERED: DIAMOX ONE (09:10)
[2017-11-19 08:44] VITALS: BP 136/67
--- NOTE | 2017-11-19 09:49 | OP ---
PREOPERATIVE DIAGNOSIS: ADVANCED AGE NUCLEAR SCLEROTIC CATARACT, RIGHT EYE. POSTOPERATIVE DIAGNOSIS: SAME. OPERATION PHACOEMULSIFICATION ASPIRATION OF CATARACT RIGHT EYE. PLACEMENT OF POSTERIOR CHAMBER LENS. PHACO TIME 25.7 SECONDS AT 18.7% POWER. LENS MODEL TECNIS [id number]. DIOPTER +22.5D. TECHNIQUE: CLEAR CORNEA. ANESTHESIA: TOPICAL ANESTHESIA W/ANESTHESIA MONITORING. OPERATIVE REPORT: Topical anesthesia consisting of Tetracaine was applied to the cornea and Xylocaine Methyl Paraben free of MFP was injected intracamerally into the anterior chamber. The patient was then brought into the operating room , prepped and draped in the usual ophthalmic manner. A lid speculum was placed and the operating microscope was used. A paracentesis was made at the 3 o' clock position. A clear corneal incision was made just out to the limbus. The anterior chamber was entered just inside the clear cornea. Viscoelastic was injected into the anterior chamber. A capsulotomy was performed with a bent # 27 gauge needle. Phacoemulsification was then performed in the posterior chamber. After completion of the phacoemulsification, residual cortical material was aspirated with the irrigation-aspiration system. The posterior capsule was polished. Viscoelastic was injected into the anterior and posterior chambers to inflate the capsular bag. Lens were placed via an Unfolder system and stabilized in the bag. Viscoelastic was removed from the anterior chamber. The wound was checked for any leakage. The four sponges were removed from the fornix. Topical antibiotic steroid and nonsteroidal drops were also applied to the cornea. A Rey shield was applied. The patient left the operating room in good condition without any complications. INTRAOPERATIVE MEDICATIONS: Xylocaine Methyl Paraben Free MPF MTDD
== END 2017-11-18 09:14 | disposition home or self-care (01) ==
LOC: SURG 06:11
PROVIDERS: ATTEND Ophthalmology
DX: Z96.1 Presence of intraocular lens (principal); H25.11 Age-related nuclear cataract, right eye

== ENCOUNTER 2017-11-21 12:09 | Outpatient (CLI) ==
[2017-02-04 07:50] VITALS: BMI 25.7
--- NOTE | 2017-11-21 13:13 | STRESSECHO ---
Date of Test: 11/21/17 Ordering Physician: DR LALITO STEEL Occupation :RETIRED Reason for Exam: COPD, HTN, CABG X4 Smoking History: QUIT 1 YEAR AGO Height : 72" Weight: 162 LBS Current Medications: PROAIR, LIPITOR, SYMBICORT, ASA Physical Findings: S1, S2, NO S3 Resting EKG: SINUS RHYTHM/ LVH Target Heart Rate: 141/166 S-T SEGMENT STAGE MPH/GRADE HEART RATE BPM BLOOD PRESSURE MMHG RHYTHM +/- ELEVATION DEPRESSION SYMPTOMS,COMMENTS AT REST 90 154/82 SR X NONE 1 1.7/10% 136 176/82 SR X NONE 2 2.5/12% 3 3.4/14% 4 4.2/16% 5 5.0/18% Immediately After 150 198/98 SR X FATIGUE Minutes Post Exercise 5:00 90 158/80 SR X NO COMMENTS Minutes Post Exercise DURATION OF EXERCISE: 5:00 MAXIMUM HEART RATE REACHED: 150 BPM REASON FOR TERMINATION: FATIGUE 94% OXYGEN SATURATION ON ROOM AIR WITH EXERCISE METS: 6.0 INTERPRETATION: 1. NO EVIDENCE OF ISCHEMIA BY ST-T WAVE 2. NO CHEST PAIN OR DISCOMFORT 3. BLOOD PRESSURE RESPONSE: MILD SYSTOLIC HYPERTENSION WITH EXERCISE 4. NO ARRHYTHMIAS HYPOKINETIC SEPTUM AT REST AND WITH EXERCISE MTDD
--- NOTE | 2017-11-25 13:27 | ECHO2D ---
Date of Exam: 11/21/17 Ordering Physician: DR. LALITO STEEL Room #: OP Reason for Echo: COPD, HTN CABG X 4 M-Mode Normal Adult Results LV Dimensions Normal Adult Results AoV Opening excursions >1.6 >1.6 LVEDD-base- 3.5-5.8 4.9 Ao root dimensions 2.0-3.7 3.3 LVESD-base- 3.1-4.6 L. Atrium dimensions 1.9-3.8 3.5 Post. Wall thickness 0.8-1.1 1.2 IV septum (thickness) 0.7-1.2 1.1 Post. Wall excursion 0.72-1.3 NORMAL Septal motion .4 Systolic motion R. Ventricular cavity 1.5-2.0 NORMAL LVEF 60% 52% Paradoxical septal wall motion NORMAL 2-D : HYPOKINETIC SEPTAL WALL-- NORMAL VALVES--CALCIFIC MITRAL VALVE ANNULUS-- NO EFFUSION, NORMAL LEFT VENTRICLE AND LEFT ATRIAL SIZE M-MODE: MV: CALCIFIC MITRAL VALVE ANNULUS AV: NORMAL TV: NORMAL PV: CHAMBER SIZE: NORMAL WALL MOTION: HYPOKINETIC SEPTUM PERICARDIUM: NORMAL INTERPRETATION: 1. BORDERLINE LEFT VENTRICULAR HYPERTROPHY 2. HYPOKINETIC SEPTUM EJECTION FRACTION 50% 3. CALCIFIC MITRAL VALVE ANNULUS MTDD
== END 2017-11-21 12:10 | disposition home or self-care (01) ==
LOC: CAR 12:09
PROVIDERS: ATTEND Internal Medicine
DX: Z01.810 Encounter for preprocedural cardiovascular examination (principal); J44.9 Chronic obstructive pulmonary disease, unspecified; Z95.1 Presence of aortocoronary bypass graft
CPT/HCPCS: 93005; 93010

== ENCOUNTER 2018-03-29 12:24 | Emergency (ER) ==
[2018-03-29 12:25] VITALS: BMI 25.7
[2018-03-29 12:28] VITALS: BP 191/101; TEMP 97.2
--- NOTE | 2018-03-29 13:36 | ED.PDOC ---
General ED Provider: Dr. TRUNG MARIE Chief Complaint: Shoulder Pain/Injury Stated Complaint: States fell off steps and landed on back and shoulder. Experiencing severe pain in Rt shoulder region . Time Seen by Physician: 13:30 Mode of Arrival: Walk-In Information Source: Patient Exam Limitations: No limitations Primary Care Provider: LALITO MALAGON Nursing and Triage Documentation Reviewed and Agree: Yes Does patient meet sepsis criteria?: No System Inflammatory Response Syndrome: Not Applicable Sepsis Protocol: For patient's 13 years and over: Temp is 96.8 and below OR 101 and greater Pulse >90 BPM Resp >20/minute Acutely Altered Mental Status Are patient's symptoms suggestive of a new infection, such as: -Pneumonia -Skin, Soft Tissue -Endocarditis -UTI -Bone, Joint Infection -Implantable Device -Acute Abdominal Infection -Wound Infection -Meningitis -Blood Stream Catheter Infection -Unknown Musculoskeletal Complaint Exam - Shoulder Pain Complaint/Exam Mechanism of Injury: Reports: Trauma Onset/Duration: 1-2 hrs Symptoms Are: Still present Timing: Constant Initial Severity: Moderate Current Severity: Moderate Location: Reports: Diffuse Character: Reports: Aching, Stiffness Alleviating: Reports: Rest Aggravating: Reports: Movement Associated Signs and Symptoms: Reports: Swelling, Bruising, Numbness Related History: Denies: Similar episode Non-Orthopedic Risk Factors: Reports: None DVT Risk Factors: Reports: None Septic Arthritis Risk Factors: Reports: None Related Surgical History: Reports: None Shoulder Findings: Present: Swelling, Abnormal contour Tenderness: Present: Proximal humerus Limited Range of Motion: Present: Abduction, Adduction, Internal rotation, External rotation Differential Diagnoses: Dislocation, Closed Fracture, Sprain Review of Systems - Review Of Systems Constitutional: Reports: No symptoms Eyes: Reports: No symptoms Ears, Nose, Mouth, Throat: Reports: No symptoms Respiratory: Reports: No symptoms Cardiac: Reports: No symptoms GI: Reports: No symptoms : Reports: No symptoms Musculoskeletal: Reports: Joint pain Skin: Reports: No symptoms Neurological: Reports: No symptoms Endocrine: Reports: No symptoms Hematologic/Lymphatic: Reports: No symptoms All Other Systems: Reviewed and Negative Past Medical History - Past Medical History Previously Healthy: Yes Endocrine: Reports: None, Dyslipidemia Cardiovascular: Reports: None Respiratory: Reports: COPD Hematological: Reports: None Gastrointestinal: Reports: None Genitourinary: Reports: None Neuro/Psych: Reports: None Musculoskeletal: Reports: None Cancer: Reports: None - Surgical History General Surgical History: Reports: None - Family History Family History: Reports: None - Social History Smoking Status: Former smoker Hx Substance Use: No Alcohol Screening: Occasionally - Immunizations Tetanus Shot up to Date: No Physical Exam - Physical Exam Appearance: Well-appearing, Well-nourished Ill-appearing: None Pain Distress: Moderate Eyes: GILMER, EOMI, Conjunctiva clear ENT: Ears normal, Nose normal, Oropharynx normal Respiratory: Airway patent, Breath sounds clear, Breath sounds equal, Respirations nonlabored Cardiovascular: RRR, Pulses normal, No rub, No murmur GI/: Soft, Nontender, No masses, Bowel sounds normal, No Organomegaly Musculoskeletal: Normal strength, ROM intact, No edema, No calf tenderness, Limited ROM (Rt Glenohumeral joint) Skin: Warm, Dry, Normal color Neurological: Sensation intact, Motor intact, Reflexes intact, Cranial nerves intact, Alert, Oriented Psychiatric: Affect appropriate, Mood appropriate Interpretation - Radiology Interpretation Radiology Interpretation By: Radiologist Radiology Results: Positive (anterior dislocaton Rt glenohumeral joint) Exam Interpreted: Other (Rt Shoulder xray/ant dislocation. ) Radiology Interpretation By: Radiologist Radiology Results: Positive (Ant dislocation again demonstrated 2nd set post reduction films) Exam Interpreted: Other (post reduction films reviewed in Department demonstrate reduction of dislocation however these images not sent to radiolgist for interperation by tech) Xray Comments: Procedures - Joint Reduction Indications: Present: Dislocation (After successful reduction, post reduction xray ordered. 2 views demonstrated reduction then auto technician attempted to get 3rd view which resulted in re current dislocation ) Joint Reduction Site: Shoulder (R) Conscious Sedation: Yes (Dilaudid and Lorazepam) Nerve Block Used: No Reduction Attempts: 4 (multiple techniques -) Pre-Procedure NV Exam: Yes Post Joint Reduction Film: Recurrent re-dislocation Critical Care Note - Critical Care Note Total Time (mins): 0 Course - Course Orders, Labs, Meds: Orders Category Date Time Status IV [ED IV/MEDIPORT/POWERPORT] .ONCE EMERGENCY 03/29/18 13:40 Active 0.9 % Sodium Chloride [Saline Flush] MEDS 03/29/18 13:40 Discontinued 1 syr IVF PRN PRN Diazepam Syringe [Valium Syringe] MEDS 03/29/18 15:26 Discontinued 2 mg IVP ONCE STA Hydromorphone HCl [Dilaudid 1 mg/ml Syringe] MEDS 03/29/18 15:25 Discontinued 1 mg IVP ONCE STA Hydromorphone HCl [Dilaudid 1 mg/ml Syringe] MEDS 03/29/18 16:20 Discontinued 1 mg IVP ONCE STA Ketorolac Tromethamine [Toradol] MEDS 03/29/18 13:40 Discontinued 30 mg IVP ONCE STA Lorazepam Inj [Ativan] MEDS 03/29/18 15:52 Discontinued 1 mg IVP ONCE STA Sodium Chloride 0.9% [Sodium Chloride] 1,000 ml MEDS 03/29/18 15:25 Discontinued IV BOLUS SHOULDER, RIGHT MIN 2V Stat RADS 03/29/18 13:45 Completed SHOULDER, RIGHT MIN 2V Stat RADS 03/29/18 16:32 Completed Medications Discontinued Medications Generic Name Dose Route Start Last Admin Trade Name Freq PRN Reason Stop Dose Admin Diazepam 2 mg 03/29/18 15:26 03/29/18 15:44 Valium Syringe IVP 03/29/18 15:27 Not Given ONCE STA Hydromorphone HCl 1 mg 03/29/18 15:25 03/29/18 15:48 Dilaudid 1 Mg/Ml Syringe IVP 03/29/18 15:26 1 mg ONCE STA Administration Hydromorphone HCl 1 mg 03/29/18 16:20 03/29/18 16:25 Dilaudid 1 Mg/Ml Syringe IVP 03/29/18 16:21 1 mg ONCE STA Administration Sodium Chloride 1,000 mls @ 500 mls/hr 03/29/18 15:25 03/29/18 15:44 Sodium Chloride IV 03/29/18 17:24 500 mls/hr BOLUS STA Administration Ketorolac Tromethamine 30 mg 03/29/18 13:40 03/29/18 14:01 Toradol IVP 03/29/18 13:41 30 mg ONCE STA Administration Lorazepam 1 mg 03/29/18 15:52 03/29/18 16:27 Ativan IVP 03/29/18 15:53 1 mg ONCE STA Administration Sodium Chloride 1 syr 03/29/18 13:40 03/29/18 14:01 Saline Flush IVF 1 syr PRN PRN Administration To flush IV Vital Signs: Temp Pulse Resp BP Pulse Ox 12/22/18 12:25 97.2 F L 86 20 191/101 H 90 L Departure - Departure Time of Disposition: 20:10 Disposition: TSF SHORT-TRM HOSP Discharge Problem: Recurrent anterior dislocation of shoulder Instructions: Shoulder Dislocation (ED) Condition: Stable Pt referred to PMD for follow-up: Yes (Dr Malagon) IPMP verified?: No Additional Instructions: Seek follow up care with pcp and PT Allergies/Adverse Reactions: Allergies docosanol [From Abreva] Allergy (Mild, Verified 03/29/18 12:30) Rash Home Medications: Ambulatory Orders Albuterol Sulfate [Ventolin Hfa] 1 puff IH Q6H PRN 11/21/16 Aspirin [Aspirin EC] 1 cap PO DAILY 10/10/17 Budesonide/Formoterol Fumarate [Symbicort 80-4.5 Mcg Inhaler] 1 puff PO DAILY Atorvastatin Calcium [Lipitor] 1 tab PO DAILY 10/14/17 Transfer Form Completed: Yes Disposition Discussed With: Patient, Family Additional Information: Discussed with patient and his the need to refer for orhtopedic consult due to difficulty obtaining reduction of the dislocation and concern about possible underlying fracture.Patient agreed. Spoke with Dr Sandoval. at [facility] explaining the the patients conditon. He agreed to see patient in consult. Arrangements were made to transfer patient to [facility] for orthoopedic consult by Dr Sandoval Was accepted Nursing discussed with patient/when considering options, patient refusing transfer due to insurance coverage concerns and requests referral to [facility] or [facility] stating I have been there and they accept my insurance. Called [facility]/Dr Aleks Cabrera contacted/Explained circumstances-Agrees to see patient in transfer and will evaluate at [facility] in [place] Advised patient of arrangements
[2018-03-29] MEDS ORDERED: TORADOL IVP STA (13:40)
--- NOTE | 2018-03-29 14:21 | DI ---
EXAM: Three-view right shoulder COMPARISON: None HISTORY: Trauma and pain FINDINGS: There is an anterior dislocation of the right shoulder no definite fracture is identified. Soft tissues are unremarkable. There is some degenerative change of the acromioclavicular joint. IMPRESSION: Anterior right shoulder dislocation. No fractures identified.
[2018-03-29] MEDS ORDERED: SODIUM CHLORIDE 1,000 ML IV STA (15:25)
[2018-03-29] MEDS ORDERED: DILAUDID 1 MG/ML SYRINGE IVP STA ×2 (15:25→16:20)
[2018-03-29] MEDS ORDERED: VALIUM SYRINGE IVP STA (15:26)
[2018-03-29] MEDS ORDERED: ATIVAN IVP STA (15:52)
--- NOTE | 2018-03-29 20:45 | DI ---
EXAM: Two views of the right shoulder COMPARISON: Right shoulder from earlier same day HISTORY: Post reduction FINDINGS: There is continued anterior dislocation of the right glenohumeral joint. No definite frac tures are seen. Soft tissues are unremarkable. Joint spaces are well preserved. There are no unexpe cted radiodensities. There is no significant degenerative change. IMPRESSION: Continued anterior dislocation of the right glenohumeral joint.
== END 2018-03-29 21:30 | disposition short-term general hospital (02) ==
LOC: ED 12:24
DX: M24.411 Recurrent dislocation, right shoulder (principal); W10.9XXA Fall (on) (from) unspecified stairs and steps, initial encounter
CPT/HCPCS: 96361; 96374; 96375; 96376; 99285

== ENCOUNTER 2018-06-09 15:33 | Outpatient (CLI) | END 2018-06-09 15:34 | disposition home or self-care (01) | LOC: LAB 15:33 | PROVIDERS: ATTEND Radiology Radiation Oncology | DX: C61 Malignant neoplasm of prostate (principal) | CPT/HCPCS: 36415 ==

== ENCOUNTER 2018-07-03 08:00 | Outpatient (RCR) ==
--- NOTE | 2018-06-12 09:21 | RS.OPPTEV2 ---
Date of Note: 06/11/18 Visit #: 1 Number of visits approved by Insurance: pending Date of Evaluation: 06/11/18 Payer Source: Medicaid ([facility]) Date of Onset/Injury/Change in Status: 03/29/18 Treatment Diagnosis: Right shoulder stiffness and weakness History of Condition/Mechanism of Injury:: Mr. Monaco states he feel off his steps on 03/29/18 and landed on his back and right shoulder. States he came to our ER and his shoulder was reduced, but then re-dislocated during post- reduction X rays. Due to the shoulder being difficult to reduce and concern for possible fracture, he was transferred to [facility] physician. Prior Level of Function.....Patient was independent with: ADL's, Self Care, Caregiving, Ambulation/Mobility, Community Integration/Access Functional Limitations: Sleep, Self Care, ADL's, Reaching, Pushing, Pulling, Lifting, Carrying, Community Access/Integration Current Subjective/complaints:: Mr. Monaco states he was in a sling for two weeks. States when the shoulder was dislocated it felt like it was in his arm pit. States now the right shoulder mainly feels tight. States he has not done alot of motion with the right shoulder since his injury. States he gets a dull ache at times. He occasioanlly wakes up during sleep from aching in the shoulder. He denies any swelling in the right UE. States his right arm has gotten weak. He is ambidextrous. States donning clothes is still awkward and difficult. He received a Cortisone injection in the right shoulder 12 days ago. States it has made a big difference in his ROM and pain since receiving the injection. He has light tingling in the right hand, but states this was present prior to the shoulder injury. States he hopes to be able to return to bow hunting in January. Treatment Side (optional): Right Medical History Medical History Comments:: Prostate Cancer Surgical History Comments:: Hernia repair, CABG X3, Cataract surgery Smoking Status: Former smoker Hx Home Medications: Symbicort Patient's Goals: His goal is to regain strength and ROM of the right shoulder and return to bow hunting. Pain Assessment - Pain Description Pain Location: Right shoulder Pain Description: Dull, Aching Current Pain Intensity: 1/10 Worst Pain Intensity: 8/10 Functional Outcome Measure UE Functional Index: 35 (35/80=56.25% impairment) - G Codes & Severity Modifier G Codes & Modifier: NA Source of G Code score: Na Observation - Observation Posture: Forward Head, Rounded Shoulders Handedness: Ambidextrous Shoulder ROM: Left WFL's Shoulder Muscle Strength: Left WFL's - Right Shoulder ROM Right Shoulder Flexion: 95 (degrees AROM) Right Shoulder Abduction: 105 (degrees AROM) Right Shoulder Internal Rotation: 60 (degrees AROM) Right Shoulder External Rotation: 42 (degrees AROM) Right Shoulder ROM Limitations: Soft Tissue Tightness, Pain Comments: Right shoulder PROM: flexion 125 degrees, abduction 105 degrees, ER 45 degrees, IR WFL's. Demonstrates scapular dysfunction with AROM. - Right Shoulder Strength Right Shoulder Flexion: 4- Good- Right Shoulder Extension: 4 Good Right Shoulder Abduction: 4- Good- Right Shoulder Adduction: 4+ Good + Right Shoulder External Rotation: 4- Good- Right Shoulder Internal Rotation: 4 Good Comments: Denies pain with MMT of the right shoulder. Corrugator Machine Operator Strength Left Hand Corrugator Machine Operator Strength: 94 lbs. Right Hand Corrugator Machine Operator Strength: 80 lbs. Dynamometer Testing Position: 2nd Position Palpation Comments:: Reports no tenderness with palpation to the right scapula or GH joint. Sensation - Sensation Comments: Impaired sensation in the right hand. Reports this was present prior the shoulder injury. He can detect light touch and deep pressure. Interventions - Exercise/Activities/Manual Therapy Exercises/Activities: Mr. Monaco received PROM and gentle stretching to the right shoulder, with emphasis on flexion, abduction, scaption. PROM was done into ER with no ROM beyond pain. Discomfort reported on end range abduction. Instructed in HEP of wand for AAROM shoulder flexion and abduction and scapular retraction. Advised to avoid excessive ER or extension of the shoulder. Also advised to avoid increasing his pain with exercises. Total minutes of Exercise: X 18 mins Manual Therapy: Gentle distraction performed with PROM to right shoulder. HOME EXERCISE PROGRAM: wand for AAROM shoulder flexion and abduction and scapular retraction. - Charges Timed Code Treatment Minutes: 18 mins Total Treatment Time: 52 mins Procedures billed for this date of service:: EVAL med, EX EVALUATION COMPLEXITY LEVEL EVALUATION COMPLEXITY LEVEL: HISTORY: Medium (HX of CABG, Prostate Cancer), EXAM OF BODY SYSTEMS: Medium (ROM, MS, sensation, scapula function), CLINICAL PRESENTATION: Medium (recent major improvement since injection, may regress once wears off), CLINICAL DECISION MAKING: Medium Assessment Assessment: Mr. Monaco presents 2 1/2 months after trauma to the right shoulder, from a fall, involving dislocation of the shoulder and closed fracture of the genoid cavity and neck of the right scapula. His Xrays showed an Anterior dislocation, but he decribed feeling it in his armpit. He may have had some inferior translation of the head of the humerus as well. He reports recent improvement with ROM and pain since receiving a Cortisone injection. He presents today with limited Active and Passive ROM of the right shoulder, muscle weakness, and instability/dysfunction of the right scapula. He reports difficulty with sleeping, getting dressed, and general reaching. He demonstrates good potential to regain functional AROM and return to his prior level of function. Patient Education: Education of diagnosis, Body/Joint mechanics, Home Exercise Program, Home Safety, Activity Modification, Education of Plan of Care Rehab Potential: Good Short Term Goals Goal #1: Pt independent and compliant with HEP. Goal to be met by: 06/25/18 Goal #2: Right shoulder PROM WFL's in all directions. Goal to be met by: 06/25/18 Goal #3: Demo. symmetrical scapular mov't with B shldr abduction to 90 degrees. Goal to be met by: 06/25/18 Goal #4: Right shoulder strength grossly 4/5 throughout. Goal to be met by: 06/25/18 Care Home Goals Goal #1: Pt knows HEP and to continue ex's to maintain functional level at D/C. Goal to be met by: 07/26/18 Goal #2: Score on UE functional scale improved to 60/80. Goal to be met by: 07/26/18 Goal #3: AROM WFL's to perform ADL's & functional reaching w/o difficulty. Goal to be met by: 07/26/18 Goal #4: Pt able to sleep without interruption from right shoulder discomfort. Goal to be met by: 07/26/18 Plan - Treatment to be Provided Procedures: Therapeutic Exercises, Therapeutic Activity, Manual Therapy, Patient Education Modalities: Cryotherapy, Hot Packs - Treatment Plan Frequency: 2 X week Duration: 4 weeks Dates of Care Home Goals: 07/26/18 Expiration date of current Insurance Approval:: pending - Treatment Code (1) Shoulder stiffness Qualifiers: Laterality: right Qualified Code(s): M25.611 - Stiffness of right shoulder , not elsewhere classified (2) Scapular dyskinesis Code(s): G25.89 - OTHER SPECIFIED EXTRAPYRAMIDAL AND MOVEMENT DISORDERS Comments: G2. (3) Anterior shoulder dislocation Code(s): S43.016A - ANTERIOR DISLOCATION OF UNSPECIFIED HUMERUS, INIT ENCNTR Qualifiers: Encounter type: subsequent encounter Laterality: right Qualified Code(s) : S43.014D - Anterior dislocation of right humerus, subsequent encounter (4) Closed fracture of glenoid cavity and neck of right scapula Code(s): S42.141A - DISP FX OF GLENOID CAVITY OF SCAPULA, RIGHT SHOULDER, INIT; S42.151A - DISP FX OF NECK OF SCAPULA, RIGHT SHOULDER, INIT FOR CLOS FX Qualifiers: Encounter type: subsequent encounter Fracture healing: with routine healing Qualified Code(s): S42.141D - Displaced fracture of glenoid cavity of scapula, right shoulder, subsequent encounter for fracture with routine healing ; S42.151D - Displaced fracture of neck of scapula, right shoulder, subsequent encounter for fracture with routine healing
--- NOTE | 2018-06-16 16:31 | RS.OPPTDN ---
Subjective Date of Note: 06/16/18 Visit #: 2 Number of visits approved by Insurance: pending Date of Evaluation: 06/11/18 Payer Source: Medicaid ([facility]) Treatment Diagnosis: Right shoulder stiffness and weakness Current Subjective/complaints:: Reports right shoulder stiffness, but states he is trying to do more reaching with light activities. Pain Assessment - Pain Description Pain Location: right shoulder Current Pain Intensity: mod - Heat/Cryotherapy Treatment: Hot Pack ([id number] to the right shoulder prior to EX. Patient in sitting. ) Interventions - Exercise/Activities/Manual Therapy Exercises/Activities: PROM and gentle stretching to the right shoulder. Limited ER with no ROM beyond pain. Isometrics x4 direction with ball. Then isometric IR and ER with manual resistance. Wand for AAROM shoulder flexion and chest press. Began yellow theraband for resistive bilateral shoulder ER, short range. In sitting, AAROM into flex, scap, and abd. Patient given copy of new exercises. Total minutes of Exercise: 42mins Manual Therapy: Gentle distraction performed with PROM to right shoulder. HOME EXERCISE PROGRAM: wand for AAROM shoulder flexion and abduction and scapular retraction. Isometrics for shldr flex, ext, add, and abd with ball or pillow. Yellow theraband for resist bilateral shoulder ER. - Charges Timed Code Treatment Minutes: 42mins Total Treatment Time: 62mins Procedures billed for this date of service:: HP, EX3 Assessment: Patient able to tolearte increase in exercise. Patient Education: Body/Joint mechanics, Home Exercise Program, Activity Modification Patient demonstrates compliance with HEP?: Yes Short Term Goals Goal #1: Pt independent and compliant with HEP. Goal to be met by: 06/25/18 Progress towards Goal:: Progressing Goal #2: Right shoulder PROM WFL's in all directions. Goal to be met by: 06/25/18 Progress towards Goal:: Progressing Goal #3: Demo. symmetrical scapular mov't with B shldr abduction to 90 degrees. Goal to be met by: 06/25/18 Goal #4: Right shoulder strength grossly 4/5 throughout. Goal to be met by: 06/25/18 Shelter Goals Goal #1: Pt knows HEP and to continue ex's to maintain functional level at D/C. Goal to be met by: 07/26/18 Goal #2: Score on UE functional scale improved to 60/80. Goal to be met by: 07/26/18 Goal #3: AROM WFL's to perform ADL's & functional reaching w/o difficulty. Goal to be met by: 07/26/18 Goal #4: Pt able to sleep without interruption from right shoulder discomfort. Goal to be met by: 07/26/18 Plan Dates of Slitter Creaser Slotter Operator Goals: 07/26/18 Expiration date of current Insurance Approval:: 07/26/18 PLAN: Progress with exercise to increase functional use of the right UE.
--- NOTE | 2018-06-19 12:52 | RS.OPPTDN ---
Subjective Date of Note: 06/19/18 Visit #: 3 Number of visits approved by Insurance: NA Date of Evaluation: 06/11/18 Payer Source: Medicaid ([facility]) Treatment Diagnosis: Right shoulder stiffness and weakness Current Subjective/complaints:: Reports soreness at the right shouulder joint. States he is trying to use the right UE more and has been working on HEP. Pain Assessment - Pain Description Pain Location: Right shoulder Pain Description: Tightness, Radiating, Aching Current Pain Intensity: mild Other Comments regarding Pain:: Reports pain radiating int he upper right arm with end range flexion and scaption. Interventions - Exercise/Activities/Manual Therapy Exercises/Activities: PROM and gentle stretching to the right shoulder. Increased ER stretch. Isometrics x4 direction with manual resistance. Then isometric IR and ER with manual resistance, at different angles of abduction. Increased to red theraband for resistive short range right shoulder flexion, extension, IR, and ER. In sitting, AAROM into flex, scap, and abd. Total minutes of Exercise: 39mins Manual Therapy: Gentle distraction performed with PROM to right shoulder. Total minutes of Manual Therapy: 3mins HOME EXERCISE PROGRAM: wand for AAROM shoulder flexion and abduction and scapular retraction. Isometrics for shldr flex, ext, add, and abd with ball or pillow. Yellow theraband for resist bilateral shoulder ER. - Charges Timed Code Treatment Minutes: 42mins Total Treatment Time: 44mins Procedures billed for this date of service:: EX3 Assessment: Patient progressing with strengthening. Patient Education: Home Exercise Program Patient demonstrates compliance with HEP?: Yes Short Term Goals Goal #1: Pt independent and compliant with HEP. Goal to be met by: 06/25/18 Progress towards Goal:: Progressing Goal #2: Right shoulder PROM WFL's in all directions. Goal to be met by: 06/25/18 Progress towards Goal:: Progressing Goal #3: Demo. symmetrical scapular mov't with B shldr abduction to 90 degrees. Goal to be met by: 06/25/18 Progress towards Goal:: Progressing Goal #4: Right shoulder strength grossly 4/5 throughout. Goal to be met by: 06/25/18 Movie Editor Goals Goal #1: Pt knows HEP and to continue ex's to maintain functional level at D/C. Goal to be met by: 07/26/18 Goal #2: Score on UE functional scale improved to 60/80. Goal to be met by: 07/26/18 Goal #3: AROM WFL's to perform ADL's & functional reaching w/o difficulty. Goal to be met by: 07/26/18 Goal #4: Pt able to sleep without interruption from right shoulder discomfort. Goal to be met by: 07/26/18 Plan Dates of Movie Editor Goals: 07/26/18 Expiration date of current Insurance Approval:: 07/26/18 PLAN: Progress with strengthening and AROM to increase patients functional use of the right UE.
--- NOTE | 2018-06-25 09:17 | RS.OPPTDN ---
Subjective Date of Note: 06/25/18 Visit #: 4 Number of visits approved by Insurance: pending Date of Evaluation: 06/11/18 Payer Source: Medicaid ([facility]) Treatment Diagnosis: Right shoulder stiffness and weakness Current Subjective/complaints:: Patient reports doing more reaching activities. Pain Assessment - Pain Description Pain Location: right shoulder Current Pain Intensity: mild Other Comments regarding Pain:: No pain at rest, discomfort at end range with stretch. Interventions - Exercise/Activities/Manual Therapy Exercises/Activities: PROM and gentle stretching to the right shoulder all directions including ER. Isometrics x4 directions and IR/ER with manual resistance. Red theraband for resistive short range right shoulder flexion, extension, IR, and ER. Bodyblade overhead. Red theraband UE diagonals. Isometric IR with ball, then holding overhead at different positions. In sitting, AAROM into flex, scap, and abd. Overhead reaching holding light therapy ball. Standing, short range resisted right shoulder flex, ext, add, and abd with green theraband. Bodyblade with bilateral UE's and right only. Total minutes of Exercise: 39mins Manual Therapy: Gentle distraction performed with PROM to right shoulder. HOME EXERCISE PROGRAM: wand for AAROM shoulder flexion and abduction and scapular retraction. Isometrics for shldr flex, ext, add, and abd with ball or pillow. Yellow and red theraband for resist bilateral shoulder ER. Standing, green theraband resisted right shoulder x4 directions, short range. - Charges Timed Code Treatment Minutes: 39mins Total Treatment Time: 42mins Procedures billed for this date of service:: EX3 Assessment: Patient progressing well with strengthening and with increased functional use of the right UE. Patient Education: Home Exercise Program, Home Safety, Activity Modification Patient demonstrates compliance with HEP?: Yes Short Term Goals Goal #1: Pt independent and compliant with HEP. Goal to be met by: 06/25/18 Progress towards Goal:: Met Goal #2: Right shoulder PROM WFL's in all directions. Goal to be met by: 06/25/18 Progress towards Goal:: Met Goal #3: Demo. symmetrical scapular mov't with B shldr abduction to 90 degrees. Goal to be met by: 06/25/18 Progress towards Goal:: Progressing Goal #4: Right shoulder strength grossly 4/5 throughout. Goal to be met by: 06/25/18 Progress towards Goal:: Progressing Fdc Goals Goal #1: Pt knows HEP and to continue ex's to maintain functional level at D/C. Goal to be met by: 07/26/18 Goal #2: Score on UE functional scale improved to 60/80. Goal to be met by: 07/26/18 Goal #3: AROM WFL's to perform ADL's & functional reaching w/o difficulty. Goal to be met by: 07/26/18 Goal #4: Pt able to sleep without interruption from right shoulder discomfort. Goal to be met by: 07/26/18 Plan Dates of Nuclear Pharmacist Goals: 07/26/18 Expiration date of current Insurance Approval:: 07/26/18 PLAN: Progress with strengthening of right UE to increase functional activity level.
--- NOTE | 2018-06-27 09:20 | RS.OPPTDN ---
Subjective Date of Note: 06/27/18 Visit #: 5 Number of visits approved by Insurance: pending Date of Evaluation: 06/11/18 Payer Source: Medicaid ([facility]) Treatment Diagnosis: Right shoulder stiffness and weakness Current Subjective/complaints:: Patient reports soreness along pectoralis muscle since last session of increase in resistive work. Pain Assessment - Pain Description Pain Location: right shoulder Pain Description: Tightness, Aching Current Pain Intensity: mild to mod with end range stretch Interventions - Exercise/Activities/Manual Therapy Exercises/Activities: PROM and gentle stretching to the right shoulder all directions including ER. Isometrics x4 directions and IR/ER with manual resistance. Increased to green theraband for resistive short range right shoulder extension, IR, and ER. Bodyblade overhead. 6# wand for chest press and overhead work. Red theraband UE diagonals. Red theraband for flexion. Isometric IR with ball, then holding overhead at different positions. Also in supine, bodyblade different positions of right UE only and bilateral hands. In sitting, AAROM into flex, scap, and abd. Overhead reaching holding light therapy ball. Standing, ball on the wall for circles and presses. Total minutes of Exercise: 40mins Manual Therapy: Gentle distraction performed with PROM to right shoulder. trigger point release at pectoralis. Total minutes of Manual Therapy: 3mins HOME EXERCISE PROGRAM: wand for AAROM shoulder flexion and abduction and scapular retraction. Isometrics for shldr flex, ext, add, and abd with ball or pillow. Yellow and red theraband for resist bilateral shoulder ER. Standing, green theraband resisted right shoulder x4 directions, short range. - Charges Timed Code Treatment Minutes: 43mins Total Treatment Time: 43mins Procedures billed for this date of service:: EX3 Assessment: Paitent progressing with ROM and with strengthening. Patient Education: Home Exercise Program Patient demonstrates compliance with HEP?: Yes Short Term Goals Goal #1: Pt independent and compliant with HEP. Goal to be met by: 06/25/18 Progress towards Goal:: Met Goal #2: Right shoulder PROM WFL's in all directions. Goal to be met by: 06/25/18 Progress towards Goal:: Met Goal #3: Demo. symmetrical scapular mov't with B shldr abduction to 90 degrees. Goal to be met by: 06/25/18 Progress towards Goal:: Progressing Goal #4: Right shoulder strength grossly 4/5 throughout. Goal to be met by: 06/25/18 Progress towards Goal:: Progressing Detention Goals Goal #1: Pt knows HEP and to continue ex's to maintain functional level at D/C. Goal to be met by: 07/26/18 Progress towards goal: Progressing Goal #2: Score on UE functional scale improved to 60/80. Goal to be met by: 07/26/18 Goal #3: AROM WFL's to perform ADL's & functional reaching w/o difficulty. Goal to be met by: 07/26/18 Goal #4: Pt able to sleep without interruption from right shoulder discomfort. Goal to be met by: 07/26/18 Plan Dates of Bit Shaver Goals: 07/26/18 Expiration date of current Insurance Approval:: 07/26/18 PLAN: Progress with exercise to reduce pain and increase functional activity level.
--- NOTE | 2018-06-30 11:58 | RS.OPPTDN ---
Subjective Date of Note: 06/30/18 Visit #: 6 Number of visits approved by Insurance: pending Date of Evaluation: 06/11/18 Payer Source: Medicaid ([facility]) Treatment Diagnosis: Right shoulder stiffness and weakness Current Subjective/complaints:: Patient reports continued improvment in right shoulder strength. States he has discomfort at end range with flexion and scaption. Pain Assessment - Pain Description Pain Location: right shoulder joint Current Pain Intensity: mild to mod at end range Interventions - Exercise/Activities/Manual Therapy Exercises/Activities: PROM and gentle stretching to the right shoulder all directions including ER. Isometrics x4 directions and IR/ER with manual resistance. Red and green theraband for resistive short range right shoulder extension, IR, and ER. 6# wand for chest press and overhead work. Red theraband UE diagonals. Red theraband for resistive flexion with wand. Isometric IR with ball, then holding overhead at different positions. In sitting, AAROM into flex, scap, and abd. Overhead reaching holding light therapy ball. 2# dumbell with flexion and scaption. Blue theraband for resisted scaption. 3# wand overhead flexion and overhead press. Standing, ball on the wall for circles and presses. Total minutes of Exercise: 54mins Manual Therapy: Gentle distraction performed with PROM to right shoulder. HOME EXERCISE PROGRAM: wand for AAROM shoulder flexion and abduction and scapular retraction. Isometrics for shldr flex, ext, add, and abd with ball or pillow. Yellow and red theraband for resist bilateral shoulder ER. Standing, green theraband resisted right shoulder x4 directions, short range. - Charges Timed Code Treatment Minutes: 54mins Total Treatment Time: 54mins Procedures billed for this date of service:: EX4 Assessment: Progressing with ROM and strengthening. Patient Education: Body/Joint mechanics, Home Exercise Program Patient demonstrates compliance with HEP?: Yes Short Term Goals Goal #1: Pt independent and compliant with HEP. Goal to be met by: 06/25/18 Progress towards Goal:: Met Goal #2: Right shoulder PROM WFL's in all directions. Goal to be met by: 06/25/18 Progress towards Goal:: Met Goal #3: Demo. symmetrical scapular mov't with B shldr abduction to 90 degrees. Goal to be met by: 06/25/18 Progress towards Goal:: Partially Met Goal #4: Right shoulder strength grossly 4/5 throughout. Goal to be met by: 06/25/18 Progress towards Goal:: Progressing Senior Living Goals Goal #1: Pt knows HEP and to continue ex's to maintain functional level at D/C. Goal to be met by: 07/26/18 Progress towards goal: Progressing Goal #2: Score on UE functional scale improved to 60/80. Goal to be met by: 07/26/18 Goal #3: AROM WFL's to perform ADL's & functional reaching w/o difficulty. Goal to be met by: 07/26/18 Progress towards goal: Progressing Goal #4: Pt able to sleep without interruption from right shoulder discomfort. Goal to be met by: 07/26/18 Plan Dates of Supervisor Sawmill Goals: 07/26/18 Expiration date of current Insurance Approval:: 07/26/18 PLAN: Progress with ROM and strengthening of the right UE to increase functional activity level.
--- NOTE | 2018-07-03 10:58 | RS.OPPTDN ---
Subjective Date of Note: 07/03/18 Visit #: 7 Number of visits approved by Insurance: pending Date of Evaluation: 06/11/18 Payer Source: Medicaid ([facility]) Treatment Diagnosis: Right shoulder stiffness and weakness Current Subjective/complaints:: Patient reports he is very pleased with his progress. States he is about 80% better. States is he does on progress from this point he can "live with it", as he is able to perform several functional activities. Pain Assessment - Pain Description Pain Location: right shoulder Pain Description: Tightness, Aching Current Pain Intensity: 0 at rest, mild at end range Interventions - Exercise/Activities/Manual Therapy Exercises/Activities: PROM and gentle stretching to the right shoulder all directions including ER. Distraction of right shoulder with stretching. Isometrics all directions, including IR and ER with manual resistance. Green theraband for resistive short range right shoulder extension, IR, and ER. Green theraband for UE diagonals. 3# wand for chest press and overhead work. Red theraband for resistive flexion with wand. Isometric IR with ball. 2# ball overhead for proprioception. Occilating flex/ext with ball overhead. Bodyblade overhead. In sitting, AROM into flex, scap, and abd, with and without 2# dumbell. Blue theraband for resisted scaption. 3# wand overhead flexion and overhead press. Standing, blue theraband for resisted shoulder flex, ext, add, and abd. Discussion of HEP and finalized patient education. Total minutes of Exercise: 54mins Manual Therapy: na HOME EXERCISE PROGRAM: wand for AAROM shoulder flexion and abduction and scapular retraction. Isometrics for shldr flex, ext, add, and abd with ball or pillow. Yellow and red theraband for resist bilateral shoulder ER. Standing, green theraband resisted right shoulder x4 directions, short range. - Objective Findings Observations,measurements,etc.: Patient demos 4 to 4+/5 MMT of right shoulder. - Charges Timed Code Treatment Minutes: 54mins Total Treatment Time: 54mins Procedures billed for this date of service:: EX4 Assessment: Patient has progressed well and met all treatment goals. He is performing most ADL's and is independent with HEP. Patient Education: Body/Joint mechanics, Home Exercise Program, Home Safety, Activity Modification, Education of Plan of Care Comments: Reveiwed and completed all patient education. Patient demonstrates compliance with HEP?: Yes Short Term Goals Goal #1: Pt independent and compliant with HEP. Goal to be met by: 06/25/18 Progress towards Goal:: Met Goal #2: Right shoulder PROM WFL's in all directions. Goal to be met by: 06/25/18 Progress towards Goal:: Met Goal #3: Demo. symmetrical scapular mov't with B shldr abduction to 90 degrees. Goal to be met by: 06/25/18 Progress towards Goal:: Met Goal #4: Right shoulder strength grossly 4/5 throughout. Goal to be met by: 06/25/18 Progress towards Goal:: Met Flat Sorting Machine Clerk Goals Goal #1: Pt knows HEP and to continue ex's to maintain functional level at D/C. Goal to be met by: 07/26/18 Progress towards goal: Met Goal #2: Score on UE functional scale improved to 60/80. Goal to be met by: 07/26/18 Progress towards goal: Met Goal #3: AROM WFL's to perform ADL's & functional reaching w/o difficulty. Goal to be met by: 07/26/18 Progress towards goal: Met Goal #4: Pt able to sleep without interruption from right shoulder discomfort. Goal to be met by: 07/26/18 Progress towards goal: Met Plan Dates of Flat Sorting Machine Clerk Goals: 07/26/18 Expiration date of current Insurance Approval:: 07/26/18 PLAN: Discharge with HEP.
--- NOTE | 2018-07-03 11:00 | RS.QUICKDC ---
Discharge from PT Date of Discharge: 07/03/18 Number of Visits: 7 Reason for Discharge: Patient progressed well with treatment and met all goals. He will continue HEP as instructed. Discharge at this time.
== END 2018-07-06 23:59 ==
PROVIDERS: ATTEND Specialist
DX: S42.141D Displaced fracture of glenoid cavity of scapula, right shoulder, subsequent encounter for fracture with routine healing (principal); M25.511 Pain in right shoulder; S46.011D Strain of muscle(s) and tendon(s) of the rotator cuff of right shoulder, subsequent encounter

== ENCOUNTER 2021-02-21 07:41 | Inpatient (IN) ==
--- NOTE | 2021-02-21 08:45 | CT ---
EXAM: CT THORAX HISTORY: Cough, right-sided chest pain. TECHNIQUE: CT thorax with and without intravenous contrast. Multiplanar images presented. COMPARISON: 04/22/2020 FINDINGS: Heart size is normal. No pericardial effusion. There is mild to moderate atherosclerotic disease wh ich also involves the coronary arteries. There is at least one prominent right hilar lymph node [place] uring about 9 mm short axis. There is bilateral pleural thickening some of which is calcified. This may indicate previous asbestosis exposure. Pleural thickening is slightly more noticeable. Questio nable trace pleural effusions. There has been interval development of bilateral mass-like consolidations mainly in the bases largest measuring 3.6 x 2.5 x 2.2 cm on the left. These nodular consolidations may represent pneumonia give n the patient's history. Underlying neoplasia is not excluded and follow-up CT after management is r ecommended. Otherwise background of chronic interstitial changes. There is no vascular congestion o r pneumothorax. The bones reveal previous sternotomy. Age-related degenerative changes of the spine are noted. IMPRESSION: 1. Interval development of nodular consolidations in the bases suggesting pneumonia. Follow-up CT i s recommended after management and symptom resolution help exclude underlying neoplasia. 2. Redemonstration of changes which can be consistent with previous asbestosis exposure. 3. Prominent right hilar lymph node approaching upper limit normal in size. 4. Atherosclerotic disease. - All CT scans are performed using dose optimization techniques as appropriate to the performed exam an d include at least one of the following: Automated exposure control, adjustment of the mA and/or kV according t o size, and the use of iterative reconstruction technique.
[2021-02-21 12:49] LABS: BORDETELLA PARAPERTUSSIS (PCR) NOT DETECTED (NOT DETECT); BORDETELLA PERTUSSIS (PCR) NOT DETECTED (NOT DETECT); CHLAMYDIA PNEUMONIAE (PCR) NOT DETECTED (NOT DETECT); CORONAVIRUS 229E (PCR) NOT DETECTED (NOT DETECT); CORONAVIRUS HKU1 (PCR) NOT DETECTED (NOT DETECT); CORONAVIRUS NL63 (PCR) NOT DETECTED (NOT DETECT); CORONAVIRUS OC43 (PCR) NOT DETECTED (NOT DETECT); HUMAN METAPNEUMOVIRUS (PCR) NOT DETECTED (NOT DETECT); HUMAN RHINOVIRUS/ENTEROV (PCR) NOT DETECTED (NOT DETECT); INFLUENZA B (PCR) NOT DETECTED (NOT DETECT); MYCOPLASMA PNEUMONIAE (PCR) NOT DETECTED (NOT DETECT); PARAINFLUENZA VIRUS 1 (PCR) NOT DETECTED (NOT DETECT); PARAINFLUENZA VIRUS 2 (PCR) NOT DETECTED (NOT DETECT); PARAINFLUENZA VIRUS 3 (PCR) NOT DETECTED (NOT DETECT); PARAINFLUENZA VIRUS 4 (PCR) NOT DETECTED (NOT DETECT); RESPIRATORY SYNCYTIAL V (PCR) NOT DETECTED (NOT DETECT); SARS_COV_2 (PCR) NOT DETECTED (NOT DETECT)
[2021-02-21 13:42] LABS: ADENOVIRUS (PCR) NOT DETECTED (NOT DETECT)
[2021-02-21 15:49] VITALS: BMI 25.2
[2021-02-21] MEDS ORDERED: TYLENOL PO PRN (16:04)
[2021-02-21] MEDS ORDERED: NITROSTAT SL PRN (16:04)
[2021-02-21] MEDS ORDERED: ATROPINE SULFATE PFS IVP PRN (16:04)
[2021-02-21] MEDS ORDERED: TUSSIONEX PO PRN (16:08)
[2021-02-21 16:35] LABS: BASOPHILS % (AUTO) 0.2 % (0.0-3.0); EOSINOPHILS # (AUTO) 0.2 K/ul (0.0-0.7); EOSINOPHILS % (AUTO) 2.9 % (0.0-7.0); HEMATOCRIT 38.2 % (42.0-52.0); HEMOGLOBIN 12.6 g/dl (14.0-18.0); IMMATURE GRANULOCYTE % (AUTO) 0.4 % (0.0-5.0); LYMPHOCYTES # (AUTO) 0.9 K/uL (0.60-3.4); LYMPHOCYTES % (AUTO) 11.5 (10.0-50.0); MEAN CORPUSCULAR HEMOGLOBIN 29.2 pg (27.0-31.0); MEAN CORPUSCULAR VOLUME 88.4 fl (80.0-94.0); MONOCYTES # (AUTO) 0.5 K/uL (0.4-2.0); MONOCYTES % (AUTO) 6.1 (0-10); NEUTROPHILS # (AUTO) 6.4 K/ul (2.0-6.9); NEUTROPHILS % (AUTO) 78.9 % (42.2-75.2); PLATELET COUNT 222 10^3/uL (140-440); RDW COEFFICIENT OF VARIATION 13.2 % (11.6-14.8); RED BLOOD COUNT 4.32 10^6/ul (4.70-6.10); WHITE BLOOD COUNT 8.07 K/ul (4.2-10.2)
[2021-02-21] MEDS: ROCEPHIN 1 GM/50 ML D5W 1 GM/50 ML BAG IV SCH (16:37)
[2021-02-21] MEDS: SOLU-CORTEF 250 MG IVP SCH ×2 (16:37→21:22)
[2021-02-21] MEDS: SODIUM CHLORIDE 1,000 ML IV SCH (16:37)
[2021-02-21 16:45] LABS: ALANINE AMINOTRANSFERASE 20.9 U/L (0-50); ALBUMIN 3.94 g/dL (3.5-5.0); ALKALINE PHOSPHATASE 86.8 U/L (56-119); ASPARTATE AMINO TRANSFERASE 23.8 U/L (17-59); BILIRUBIN,TOTAL 0.85 mg/dL (0.2-1.3); BLOOD UREA NITROGEN 13.9 mg/dL (9-20); CALCIUM 9.05 mg/dL (8.4-10.2); CARBON DIOXIDE 27.5 mmol/L (22-30.0); CHLORIDE 104.8 mmol/L (98-107); CREATINE KINASE 116.9 U/L (55-170); CREATININE 0.75 mg/dL (0.60-1.10); GLUCOSE 156.9 mg/dL (74-106); POTASSIUM 3.56 mmol/L (3.5-5.1); SODIUM 139.3 mmol/L (134.5-145); TOTAL PROTEIN 6.98 g/dL (6.3-8.2)
[2021-02-21 16:57] LABS: TROPONIN I < 0.012 ng/ml (0.0000-0.120)
[2021-02-21 17:09] LABS: ABG O2 HGB 92.5 % (95-100); ABG PH 7.44 (7.35-7.45); BEecf 4.3 (-2.0-3.0); COHb 2.6 (0.5-1.5); HCO3 28.5 (21-28); MetHb 0.9 (0-1.5); TCO2 29.8 (19-24); sO2 91.9 % (94-98); tHb 12.2 g/dl (11.7-17.4)
[2021-02-21] MEDS ORDERED: ULTRAM PO PRN (19:18)
[2021-02-21] MEDS: DUONEB NEB SCH (19:50)
[2021-02-21] MEDS: PULMICORT 1 MG/2 ML NEB SCH (19:50)
[2021-02-21] MEDS: DOXY-100 100 MG in SODIUM CHLORIDE 100ML 100 ML IV SCH (20:39)
[2021-02-21 22:53] LABS: BILIRUBIN,URINE Negative (NEGATIVE); CLARITY,URINE Clear (CLEAR); COLOR,URINE Yellow (YELLOW); GLUCOSE, URINE (UA) Negative (NEGATIVE); KETONES,URINE Negative (NEGATIVE); LEUKOCYTE ESTERASE ,URINE Negative (NEGATIVE); NITRITE,URINE Negative (NEGATIVE); PH,URINE 5.5 (5-9); PROTEIN,URINE Negative (NEGATIVE); URINE, BLOOD Negative (NEGATIVE); UROBILINOGEN,URINE 0.2 (0.2)
[2021-02-22 00:23] LABS: BASOPHILS % (AUTO) 0.1 % (0.0-3.0); EOSINOPHILS % (AUTO) 0.1 % (0.0-7.0); HEMATOCRIT 37.3 % (42.0-52.0); HEMOGLOBIN 11.9 g/dl (14.0-18.0); IMMATURE GRANULOCYTE % (AUTO) 0.1 % (0.0-5.0); LYMPHOCYTES # (AUTO) 0.4 K/uL (0.60-3.4); LYMPHOCYTES % (AUTO) 4.4 (10.0-50.0); MEAN CORPUSCULAR HEMOGLOBIN 28.5 pg (27.0-31.0); MEAN CORPUSCULAR HGB CONC 31.9 (31.8-35.4); MEAN CORPUSCULAR VOLUME 89.4 fl (80.0-94.0); MONOCYTES # (AUTO) 0.1 K/uL (0.4-2.0); MONOCYTES % (AUTO) 1.4 (0-10); NEUTROPHILS # (AUTO) 7.8 K/ul (2.0-6.9); NEUTROPHILS % (AUTO) 93.9 % (42.2-75.2); PLATELET COUNT 218 10^3/uL (140-440); RED BLOOD COUNT 4.17 10^6/ul (4.70-6.10); WHITE BLOOD COUNT 8.34 K/ul (4.2-10.2)
[2021-02-22 00:31] LABS: ALBUMIN 3.83 g/dL (3.5-5.0); ALKALINE PHOSPHATASE 78.4 U/L (56-119); ASPARTATE AMINO TRANSFERASE 23.6 U/L (17-59); BILIRUBIN,TOTAL 0.39 mg/dL (0.2-1.3); CALCIUM 8.96 mg/dL (8.4-10.2); CARBON DIOXIDE 25.7 mmol/L (22-30.0); CHLORIDE 105.9 mmol/L (98-107); CREATINE KINASE 82.3 U/L (55-170); CREATININE 0.77 mg/dL (0.60-1.10); POTASSIUM 4.11 mmol/L (3.5-5.1); SODIUM 138.8 mmol/L (134.5-145); TOTAL PROTEIN 6.86 g/dL (6.3-8.2)
[2021-02-22 00:37] LABS: ALANINE AMINOTRANSFERASE 19.2 U/L (0-50)
[2021-02-22 00:42] LABS: TROPONIN I < 0.012 ng/ml (0.0000-0.120)
[2021-02-22] MEDS: DUONEB NEB SCH ×3 (04:40→21:05)
[2021-02-22] MEDS: PULMICORT 1 MG/2 ML NEB SCH ×2 (04:40→21:05)
[2021-02-22] MEDS: SOLU-CORTEF 250 MG IVP SCH ×3 (05:25→21:50)
[2021-02-22] MEDS: PEPCID PO SCH (05:59)
[2021-02-22] MEDS: SODIUM CHLORIDE 1,000 ML IV SCH (06:00)
[2021-02-22] MEDS ORDERED: MOBIC PO SCH (09:00)
[2021-02-22] MEDS: LIPITOR PO SCH (09:02)
[2021-02-22] MEDS: ROCEPHIN 1 GM/50 ML D5W 1 GM/50 ML BAG IV SCH (09:02)
[2021-02-22] MEDS: COZAAR PO SCH (09:02)
[2021-02-22] MEDS: ASPIRIN EC PO SCH (09:02)
[2021-02-22] MEDS: FLOMAX PO SCH (09:21)
[2021-02-22] MEDS: DOXY-100 100 MG in SODIUM CHLORIDE 100ML 100 ML IV SCH ×2 (10:28→20:43)
[2021-02-22] MEDS: HUMULIN R SUBCUT PRN ×3 (12:03→21:17)
--- NOTE | 2021-02-22 13:05 | HP ---
DATE OF SERVICE: 02/21/2021 REASON FOR HOSPITALIZATION/HISTORY OF PRESENT ILLNESS: The patient had CT this AM showing bilateral pneumonia. Still coughing, Shortness of breath. Finished Keflex and Prednisone. Right sided pain. PAST MEDICAL HISTORY: Asthma Hypertension Mole right shoulder COPD Former smoker CABG 11/22 times 4- Dr. Diana Cancer of prostate- Dr. Sawyer-radiation Left pleural thickening GERD Dyslipidemia CAD Status post inguinal hernia repair 06/23 Osteoarthritis knee Peyronie's disease Melanoma left leg, Dr. Jacqui MCCALLUM [facility] Bronchial asthma Hypoglycemia PAST SURGICAL HISTORY: Appendix age 1 1/ REVIEW OF SYSTEMS: CONSTITUTIONAL: No fever, Fatigue. HEENT: No sinus drainage, no sore throat. RESPIRATORY: Cough, no congestion. CARDIOVASCULAR: No atypical chest pain for coronary artery disease. No angina, CHF symptoms, palpitations. Shortness of breath. GASTROINTESTINAL: No melena or abdominal pain. No GERD. GENITOURINARY: No hematuria, no prostatism, no polyuria. METAL TRIM ERECTOR: No blackout, no dizziness, no headache, no double vision. MUSCULOSKELETAL: No osteoarthritis pain, no joint swelling. ENDOCRINE: No weight loss, no weight gain. SKIN: Not dry, no rash. PSYCHIATRIC: Not anxious, no depression, no suicidal thoughts, no homicidal thoughts. SOCIAL HISTORY: Marital Status: . Alcohol Usage: Quit. Tobacco Usage: Quit. FAMILY HISTORY: Father - Wilber Monaco Mother Sister 1 MEDICATIONS: ProAir inhaler Lipitor 80mg Aspirin 81mg Q daily Symbicort Inhaler BID Sildenafil 50mg Mobic 15mg Q daily Tramadol 50mg PRN Pepcid 20mg QAM Losartan 25mg daily Former smoker, Bear Suero. one yearly CT scan low dose 06/26 [place]. [place] ALLERGIES: Abreva PHYSICAL EXAMINATION: V/S: Pulse 87, blood pressure 130/66, temperature 98.4, pulse ox 95%.BMI 26, height 6'0, weight 187. GENERAL APPEARANCE: Oriented times three. HEENT:Pale. Shortness of breath. NECK: No JVP, no bruits. RESPIRATORY:Severely diminished breath sounds. Crackles bilateral left more than right. CARDIOVASCULAR: S1, S2, no S3, no murmur. No cyanosis, clubbing. No ascites. GI/ABDOMEN: No tenderness. Bowel sounds are active. EXTREMITIES: edema, pulses +1, equal. METAL TRIM ERECTOR: Deep tendon reflexes, sensory, motor and gait all normal. RECTAL: 05/28 [place] EGD/PROSTATE: 08/26 (1.0). ASSESSMENT: 1. Bilateral pneumonia (chest CT 02/21) 2. Shortness of breath 3. COPD 4. Right pleurisy 5. Hypertension 6. Mole right shoulder 7. COPD 8. Former smoker 9. CABG 11/22 times 4- Dr. Diana 10.Cancer of prostate- Dr. Sawyer-radiation 11.Left pleural thickening 12.GERD 13.Dyslipidemia 14.CAD 15.Status post inguinal hernia repair 06/23 16.Osteoarthritis knee 17. Peyronie's disease 18.Melanoma left leg, Dr. Jacqui MCCALLUM 19. [facility] 20.Bronchial asthma 21.Hypoglycemia PLAN: 1. The patient to go through tent for COVID testing 2. Admit 3. Routine telemetry orders 4. CBC and CMP now and daily 5. Rocephin 1 gram IV daily 6. Doxycycline 100mg IV Q 12 hours 7. Solu-Cortef IV 125mg Q 8 hours 8. Normal saline IV at 75cc an hour 9. DUO NEBS treatment TID scheduled if COVID negative 10. Pulmicort 1mg BID NEB 11.ABG on room air 12. Sputum culture 13. Blood culture times two 14. Regular diet 15. O2 1-2 liters nasal cannula PRN 16. Continue home medications (hold inhalers) 17. Tussionex one teaspoon PO BID PRN TIME SPENT: More than 70 minutes. MTDD
[2021-02-23] MEDS: SODIUM CHLORIDE 1,000 ML IV SCH ×2 (00:51→12:42)
[2021-02-23] MEDS: DUONEB NEB SCH ×3 (04:50→20:10)
[2021-02-23] MEDS: PULMICORT 1 MG/2 ML NEB SCH ×2 (04:50→19:55)
[2021-02-23 05:16] LABS: BASOPHILS % (AUTO) 0.1 % (0.0-3.0); HEMOGLOBIN 10.9 g/dl (14.0-18.0); IMMATURE GRANULOCYTE # (AUTO) 0.1 (0.0-1.0); IMMATURE GRANULOCYTE % (AUTO) 0.5 % (0.0-5.0); LYMPHOCYTES # (AUTO) 0.7 K/uL (0.60-3.4); LYMPHOCYTES % (AUTO) 7.4 (10.0-50.0); MEAN CORPUSCULAR HEMOGLOBIN 28.9 pg (27.0-31.0); MEAN CORPUSCULAR HGB CONC 32.1 (31.8-35.4); MEAN CORPUSCULAR VOLUME 90.2 fl (80.0-94.0); MONOCYTES # (AUTO) 0.3 K/uL (0.4-2.0); MONOCYTES % (AUTO) 3.5 (0-10); NEUTROPHILS # (AUTO) 8.1 K/ul (2.0-6.9); NEUTROPHILS % (AUTO) 88.5 % (42.2-75.2); PLATELET COUNT 216 10^3/uL (140-440); RDW COEFFICIENT OF VARIATION 13.5 % (11.6-14.8); RED BLOOD COUNT 3.77 10^6/ul (4.70-6.10)
[2021-02-23 05:23] LABS: ALANINE AMINOTRANSFERASE 18.1 U/L (0-50); ALBUMIN 3.46 g/dL (3.5-5.0); ALKALINE PHOSPHATASE 63.6 U/L (56-119); ASPARTATE AMINO TRANSFERASE 23.5 U/L (17-59); BILIRUBIN,TOTAL 0.31 mg/dL (0.2-1.3); BLOOD UREA NITROGEN 20.2 mg/dL (9-20); CALCIUM 8.68 mg/dL (8.4-10.2); CARBON DIOXIDE 26.7 mmol/L (22-30.0); CHLORIDE 109.1 mmol/L (98-107); CREATININE 0.72 mg/dL (0.60-1.10); GLUCOSE 159.7 mg/dL (74-106); POTASSIUM 3.76 mmol/L (3.5-5.1); SODIUM 141.5 mmol/L (134.5-145); TOTAL PROTEIN 6.21 g/dL (6.3-8.2)
[2021-02-23] MEDS: PEPCID PO SCH (05:44)
[2021-02-23] MEDS: HUMULIN R SUBCUT PRN ×4 (06:39→21:23)
[2021-02-23] MEDS ORDERED: DECADRON IM ONE (08:57)
[2021-02-23] MEDS ORDERED: PHENERGAN WITH CODEINE 6.25/10 MG/5 ML PO PRN (08:59)
--- NOTE | 2021-02-23 09:17 | PCM.PROG ---
Attending Provider: ATTENDING PROVIDER: Dr. LALITO STEEL This patient is seen with Irish Lomeli, Nurse Practitioner. DATE OF SERVICE: 02/23/21 SUBJECTIVE: This 65 year old /WHITE M was hospitalized 02/21/21. The patient is afebrile. He has been eating well. Cough is improving. REVIEW OF SYSTEMS: CONSTITUTIONAL: No night sweats. No malaise, lethargy. No fever or chills. Fatigue. HEENT: Eyes: No visual changes. No eye pain. No eye discharge. ENT: No runny nose. No epistaxis. No sinus pain. No odynophagia. No congestion. RESPIRATORY: Cough, no congestion. No hemoptysis. No shortness of breath. CARDIOVASCULAR: No angina symptoms. No CHF symptoms. No atypical chest pain for CAD. No palpitations. No orthopnea.. GASTROINTESTINAL: No abdominal pain. No nausea or vomiting. No diarrhea or constipation. No hematemesis. No hematochezia. GENITOURINARY: No urgency. No frequency. No dysuria. No hematuria. No obstructive symptoms. No discharge. No pain. No significant abnormal bleeding. MUSCULOSKELETAL: No musculoskeletal pain; no joint swelling. NEUROLOGICAL: Awake, alert, oriented to time, place and person. No headache. No neck pain. No syncope. No seizures. No dizziness. PSYCHIATRIC: Not anxious. No depression. No suicidal thoughts. No homicidal thoughts. SKIN: No rash. No lesions. No wounds. ENDOCRINE: No unexplained weight loss. No weight gain. HEMATOLOGIC/LYMPHATIC: No anemia. No purpura. No petechiae. No prolonged or excessive bleeding. No palpable lymph nodes. PHYSICAL EXAMINATION: GENERAL: The patient is awake, alert and oriented, sitting in bed in no distress. VITAL SIGNS: Temperature 97.6 F, Pulse 95, Respiratory Rate 16, BP 146/83, Pulse Ox 94% HEENT: Head normocephalic, atraumatic. Eyes: Extraocular muscles are intact. Pupils are equal, round and reactive to light and accommodation. Ears: No lesions. Nose appeared normal. Throat: No exudate or erythema. NECK: Supple. No JVD, no carotid bruit. No lymphadenopathy or thyromegaly. LUNGS: Crackles bilaterallly. Percussion note normal. Chest symmetrical. HEART: S1, S2, no S3. No murmurs. No cyanosis or clubbing. No ascites. Pulses: Dorsalis pedis and posterior tibial pulses +1 to +2 both sides. ABDOMEN: Soft. Non-tender. Bowel sounds active. No CVA tenderness. No mass felt. EXTREMITIES: No edema. Full range of motion of all extremities, equal. NEUROLOGIC: No focal deficit. Cranial nerves II through XII are grossly intact. No headache. No double vision. SKIN: Not dry. Intact. Turgor-normal. LYMPHATIC: No palpable lymph nodes/no lymphedema. MUSCULOSKELETAL: Normal joints with no swelling. Muscle tone is normal. LAB REVIEW: 02/23/21 04:55 02/23/21 04:55 02/23/21 04:55: Sodium 141.5, Potassium 3.76, Chloride 109.1 H, Carbon Dioxide 26.7, Anion Gap 9.46, BUN 20.2 H, Creatinine 0.72, Estimated GFR (MDRD) 109.00, BUN/Creatinine Ratio 28.05, Glucose 159.7 H, Calcium 8.68, Total Bilirubin 0.31, AST 23.5, ALT 18.1, Alkaline Phosphatase 63.6, Total Protein 6.21 L, Albumin 3.46 L, Globulin 2.75, Albumin/Globulin Ratio 1.25 02/23/21 04:55: WBC 9.10, RBC 3.77 L, Hgb 10.9 L, Hct 34.0 L, MCV 90.2, MCH 28.9, MCHC 32.1, RDW Coeff of Martha 13.5, Plt Count 216, Immature Gran % (Auto) 0.5, Neut % (Auto) 88.5 H, Lymph % (Auto) 7.4 L, [place] % (Auto) 3.5, Eos % (Auto) 0.0, Baso % (Auto) 0.1, Neut # (Auto) 8.1 H, Lymph # (Auto) 0.7, [place] # (Auto) 0.3 L, Eos # (Auto) 0.0, Baso # (Auto) 0.0, Immature Gran # (Auto) 0.1 02/22/21 00:15: TSH 0.627 02/22/21 00:15: Free T4 1.16 02/22/21 00:15: Hemoglobin A1c 6.19 H ASSESSMENT: Please see below. 1. Bilateral pneumonia 2. COPD PLAN: 1. Discontinue IV fluids 2. Hold Meloxicam 3. 1cc Decadrone 4. Continue antibiotics. Plan and coordination of the patient's care discussed in the presence of Technical Account Manager and nurse. SCRIBED BY: Mayo PYLE scribed while in presence of service performed by Dr. Steel/Irish Lomeli APRN on 02/23/21 ([id number])
[2021-02-23] MEDS: ROCEPHIN 1 GM/50 ML D5W 1 GM/50 ML BAG IV SCH (09:19)
[2021-02-23] MEDS: LIPITOR PO SCH (09:19)
[2021-02-23] MEDS: ASPIRIN EC PO SCH (09:19)
[2021-02-23] MEDS: COZAAR PO SCH (09:20)
[2021-02-23] MEDS: FLOMAX PO SCH (09:20)
[2021-02-23] MEDS: PREDNISONE PO SCH ×2 (09:20→16:34)
[2021-02-23] MEDS: DOXY-100 100 MG in SODIUM CHLORIDE 100ML 100 ML IV SCH ×2 (10:51→20:43)
[2021-02-23] MEDS: MUCOMYST 20% NEB NEB SCH (20:10)
[2021-02-24] MEDS: PULMICORT 1 MG/2 ML NEB SCH (04:35)
[2021-02-24] MEDS: DUONEB NEB SCH (04:50)
[2021-02-24] MEDS: MUCOMYST 20% NEB NEB SCH (04:50)
[2021-02-24 05:14] LABS: HEMATOCRIT 35.3 % (42.0-52.0); HEMOGLOBIN 11.4 g/dl (14.0-18.0); IMMATURE GRANULOCYTE # (AUTO) 0.1 (0.0-1.0); IMMATURE GRANULOCYTE % (AUTO) 0.7 % (0.0-5.0); LYMPHOCYTES # (AUTO) 0.8 K/uL (0.60-3.4); LYMPHOCYTES % (AUTO) 8.3 (10.0-50.0); MEAN CORPUSCULAR HEMOGLOBIN 29.3 pg (27.0-31.0); MEAN CORPUSCULAR HGB CONC 32.3 (31.8-35.4); MEAN CORPUSCULAR VOLUME 90.7 fl (80.0-94.0); MONOCYTES # (AUTO) 0.5 K/uL (0.4-2.0); MONOCYTES % (AUTO) 5.8 (0-10); NEUTROPHILS # (AUTO) 7.7 K/ul (2.0-6.9); NEUTROPHILS % (AUTO) 85.2 % (42.2-75.2); PLATELET COUNT 229 10^3/uL (140-440); RDW COEFFICIENT OF VARIATION 13.7 % (11.6-14.8); RED BLOOD COUNT 3.89 10^6/ul (4.70-6.10); WHITE BLOOD COUNT 9.01 K/ul (4.2-10.2)
[2021-02-24 05:28] LABS: ALANINE AMINOTRANSFERASE 24.9 U/L (0-50); ALBUMIN 3.66 g/dL (3.5-5.0); ALKALINE PHOSPHATASE 68.9 U/L (56-119); ASPARTATE AMINO TRANSFERASE 29.5 U/L (17-59); BILIRUBIN,TOTAL 0.23 mg/dL (0.2-1.3); BLOOD UREA NITROGEN 16.6 mg/dL (9-20); CALCIUM 8.99 mg/dL (8.4-10.2); CHLORIDE 107.4 mmol/L (98-107); CREATININE 0.67 mg/dL (0.60-1.10); GLUCOSE 165.9 mg/dL (74-106); POTASSIUM 3.52 mmol/L (3.5-5.1); SODIUM 140.7 mmol/L (134.5-145); TOTAL PROTEIN 6.45 g/dL (6.3-8.2)
[2021-02-24 05:38] VITALS: BP 150/81; TEMP 98.6
[2021-02-24] MEDS: HUMULIN R SUBCUT PRN ×2 (05:51→12:07)
[2021-02-24] MEDS: PEPCID PO SCH (05:51)
--- NOTE | 2021-02-24 08:36 | ECHO2D ---
Date of Exam: 02/23/2021 Ordering Physician: DR. LALITO STEEL Room #: [id number] Reason for Echo: SOB, HX CABG, M-Mode Normal Adult Results LV Dimensions Normal Adult Results AoV Opening excursions >1.6 >1.6 LVEDD-base- 3.5-5.8 4,9 Ao root dimensions 2.0-3.7 3.5 LVESD-base- 3.1-4.6 L. Atrium dimensions 1.9-3.8 4.5 Post. Wall thickness 0.8-1.1 1.4 IV septum (thickness) 0.7-1.2 1.2 Post. Wall excursion 0.72-1.3 NORMAL Septal motion 0.8 Systolic motion R. Ventricular cavity 1.5-2.0 NORMAL LVEF 60% 50-55% Paradoxical septal wall motion NORMAL 2-D : CALCIFIC MITRAL VALVE ANNULUS--ENLARGED LEFT ATRIAL CAVITY-HYPOKINETIC SEPTUM--VALVES NORMAL, NO EFFUSION, NO THROMBUS M-MODE: MV: CALCIFIC MITRAL VALVE AV: NORMAL TV: NORMAL PV: CHAMBER SIZE: ENLARGED LEFT ATRIAL CAVITY WALL MOTION: HYPOKINETIC SEPTUM PERICARDIUM: NORMAL INTERPRETATION: 1. LEFT VENTRICLE HYPERTROPHY WITH ENLARGED LEFT ATRIAL CAVITY 2. CALCIFIC MITRAL VALVE ANNULUS 3. HYPOKINETIC SEPTUM (MILD) EJECTION FRACTION 50% TO 55% 4. NORMAL VALVES MTDD
[2021-02-24] MEDS: FLOMAX PO SCH (08:52)
[2021-02-24] MEDS: PREDNISONE PO SCH (08:52)
[2021-02-24] MEDS: COZAAR PO SCH (08:52)
[2021-02-24] MEDS: ASPIRIN EC PO SCH (08:52)
[2021-02-24] MEDS: LIPITOR PO SCH (08:52)
[2021-02-24] MEDS: ROCEPHIN 1 GM/50 ML D5W 1 GM/50 ML BAG IV SCH (08:52)
--- NOTE | 2021-02-24 09:38 | PCM.PROG ---
Attending Provider: ATTENDING PROVIDER: Dr. LALITO STEEL DATE OF SERVICE: 02/24/21 SUBJECTIVE: This 65 year old /WHITE M was hospitalized 02/21/21 with bilateral pneumonitis. The patient's condition improved remarkably with steroids, NEBS and antibiotics. Cardiac findings were normal. No symptoms of CHF or coronary insufficiency. At the time of discharge the patient is feeling better. He has been up and about with oxygen saturation 95% on room air. was present in the room and the patient was strongly advised to rest for 7 days to be followed as an outpatient. REVIEW OF SYSTEMS: CONSTITUTIONAL: No night sweats. No fatigue, malaise, lethargy. No fever or chil ls. HEENT: Eyes: No visual changes. No eye pain. No eye discharge. ENT: No runny nose. No epistaxis. No sinus pain. No odynophagia. No congestion. RESPIRATORY: No cough, no congestion. No hemoptysis. No shortness of breath. CARDIOVASCULAR: No angina symptoms. No CHF symptoms. No atypical chest pain for CAD. No palpitations. No orthopnea.. GASTROINTESTINAL: No abdominal pain. No nausea or vomiting. No diarrhea or constipation. No hematemesis. No hematochezia. GENITOURINARY: No urgency. No frequency. No dysuria. No hematuria. No obstructive symptoms. No discharge. No pain. No significant abnormal bleeding. MUSCULOSKELETAL: No musculoskeletal pain; no joint swelling. NEUROLOGICAL: Awake, alert, oriented to time, place and person. No headache. No neck pain. No syncope. No seizures. No dizziness. PSYCHIATRIC: Not anxious. No depression. No suicidal thoughts. No homicidal thoughts. SKIN: No rash. No lesions. No wounds. ENDOCRINE: No unexplained weight loss. No weight gain. HEMATOLOGIC/LYMPHATIC: No anemia. No purpura. No petechiae. No prolonged or excessive bleeding. No palpable lymph nodes. PHYSICAL EXAMINATION: GENERAL: The patient is awake, alert and oriented, sitting in bed in no distress. VITAL SIGNS: Temperature 98.6 F, Pulse 84, Respiratory Rate 18, BP 150/81, Pulse Ox 95% HEENT: Head normocephalic, atraumatic. Eyes: Extraocular muscles are intact. Pupils are equal, round and reactive to light and accommodation. Ears: No lesions. Nose appeared normal. Throat: No exudate or erythema. NECK: Supple. No JVD, no carotid bruit. No lymphadenopathy or thyromegaly. LUNGS: Dry crepitations at the right base. Clear to auscultation. Percussion note normal. Chest symmetrical. HEART: S1, S2, no S3. No murmurs. No cyanosis or clubbing. No ascites. Pulses: Dorsalis pedis and posterior tibial pulses +1 to +2 both sides. ABDOMEN: Soft. Non-tender. Bowel sounds active. No CVA tenderness. No mass felt. EXTREMITIES: No edema. Full range of motion of all extremities, equal. NEUROLOGIC: No focal deficit. Cranial nerves II through XII are grossly intact. No headache, no double vision or headache. SKIN: Warm and dry. Intact. Turgor-normal. LYMPHATIC: No palpable lymph nodes/no lymphedema. MUSCULOSKELETAL: Normal joints with no swelling. Muscle tone is normal. LAB REVIEW: 02/24/21 04:54 02/24/21 04:54 02/24/21 04:54: Sodium 140.7, Potassium 3.52, Chloride 107.4 H, Carbon Dioxide 27.0, Anion Gap 9.82, BUN 16.6, Creatinine 0.67, Estimated GFR (MDRD) 118.00, BUN/Creatinine Ratio 24.77, Glucose 165.9 H, Calcium 8.99, Total Bilirubin 0.23, AST 29.5, ALT 24.9, Alkaline Phosphatase 68.9, Total Protein 6.45, Albumin 3.66, Globulin 2.79, Albumin/Globulin Ratio 1.31 02/24/21 04:54: WBC 9.01, RBC 3.89 L, Hgb 11.4 L, Hct 35.3 L, MCV 90.7, MCH 29.3, MCHC 32.3, RDW Coeff of Martha 13.7, Plt Count 229, Immature Gran % (Auto) 0.7, Neut % (Auto) 85.2 H, Lymph % (Auto) 8.3 L, [place] % (Auto) 5.8, Eos % (Auto) 0.0, Baso % (Auto) 0.0, Neut # (Auto) 7.7 H, Lymph # (Auto) 0.8, [place] # (Auto) 0.5, Eos # (Auto) 0.0, Baso # (Auto) 0.0, Immature Gran # (Auto) 0.1 ASSESSMENT: Please see below. 1. Bilateral pneumonia 2. COPD PLAN: 1. Discharge on antibiotics and steroids, side effects discussed with the patient in detail 2. Prednisone 10mg BID for 5 days then daily for 10 days 3. Doxycycline 100mg daily for 5 days 4. Keflex 500mg BID for 7 days. The patient has right sided posterior pleuritic pain which is more or less controlled when cough is controlled with Phenergan with codeine, steroids and antibiotics. Plan and coordination of the patient's care discussed in the presence of Plant Controls Specialist and nurse. SCRIBED BY: SAQIB ZHENG Fox Farmer scribed while in presence of service performed by Dr. LALITO STEEL on 02/24/21 ([id number])
--- NOTE | 2021-02-24 09:48 | PN ---
02/21/2021: Level 5 02/22/2021: Intermediate 02/23/2021: Intermediate 02/24/2021: D as in discharge MTDD
--- NOTE | 2021-02-24 09:48 | DS ---
DATE OF SERVICE: 02/24/2021 FINAL DIAGNOSIS: BILATERAL PNEUMONIA ( CHEST CT 02/21/21 ) SPUTUM- STREPTOCOCCUS PNEUMONIAE COPD RT PLEURISY ASTHMA HYPERTENSION MOLE RT SHOULDER COPD FORMER SMOKER CABG 11/22 X 4 , DR. CAMEJO PROSTRATE CANCER , DR. RUELAS- RADIATION LEFT PLEURAL THICKENING GERD DYSLIPIDEMIA CAD STATUS POST INGUINAL REPAIR 06/23 OSTEOARTHRITIS KNEE PEYROINE'S DISEASE MELANOMA LEFT LEG, DR. DANIELLE @ [facility] LVH BRONCHIAL ASTHMA HYPOGLYCEMIA APPENDECTOMY AGE 104/09 LAST VITALS: Temp Pulse Resp BP Pulse Ox 98.6 F 84 18 150/81 H 94 L 02/24/21 05:36 02/24/21 05:36 02/24/21 05:36 02/24/21 05:36 02/24/21 10:00 DISCHARGE INSTRUCTIONS: DISCHARGE: HOME FEBRUARY 24, 2021 WITH FAMILY, HE HAS BEEN INDEPENDENT. MD FOLLOW UP: SEE DR. STEEL/ ABNER RANDHAWA APRN/ CRISTIAN PALACIOS APRN IN THE OFFICE ON MARCH 06, 2021 @ 8:30 AM. CODE STATUS: FULL CODE TAKE THESE MEDICATIONS AT HOME: Albuterol Sulfate inhaler 2 puffs q 6 hrs prn Aspirin (Aspirin 81 Mg Tablet.) 81 mg PO DAILYWM [facility] Last Admin: 02/24/21 08:52 Dose: 81 mg Atorvastatin Calcium (Atorvastatin Calcium 20 Mg Tablet) 80 mg PO DAILY [facility] Last Admin: 02/24/21 08:52 Dose: 80 mg SYMBICORT (Budesonide - formoterol)80-4.5 MCG INHALER 1 PUFF BID Last Admin: 02/24/21 04:35 Dose: 1 mg Famotidine (Famotidine 20 Mg Tablet) 20 mg PO QDAC [facility] Last Admin: 02/24/21 05:51 Dose: 20 mg Doxycycline Hyclate 100 mg PO BID [facility] x 7 days -- (NEW) Stop: 02/24/21 20:59 Last Admin: 02/24/21 10:32 Dose: 50 mls/hr Losartan Potassium (Losartan Potassium 25 Mg Tablet) 50 mg PO DAILY [facility] Last Admin: 02/24/21 08:52 Dose: 50 mg Meloxicam (Meloxicam 7.5 Mg Tablet) 15 mg PO MoTuWeThFr@0900 [facility] Last Admin: 02/22/21 09:02 Dose: 15 mg Prednisone (Prednisone 10 Mg Tablet) 10 mg PO BIDWM KELI X 5 DAYS THEN DAILY X 5 DAYS THEN STOP -- ( NEW) Last Admin: 02/24/21 08:52 Dose: 10 mg Promethazine HCl/Codeine (Promethazine/Codeine Syrup 6.25/10 Mg/5 Ml Disp.Syringe) 10 ml PO QID PRN X 5 DAYS -- ( NEW) PRN Reason: PAIN WITH COUGHING Last Admin: 02/23/21 13:23 Dose: 5 ml Tamsulosin HCl (Tamsulosin Hcl 0.4 Mg Cap.Er.24h) 0.4 mg PO DAILY KELI Last Admin: 02/24/21 08:52 Dose: 0.4 mg Tramadol HCl (Tramadol Hcl 50 Mg Tablet) 50 mg PO DAILY PRN PRN Reason: Pain SILDENAFIL 50 MGPO DAILY PRN KEFLEX 500 MG PO BID X 7 DAYS -- ( NEW) ALLERGIES: docosanol [From Abreva] Allergy (Mild, Verified 03/29/18 12:30) Rash DISCONTINUED MEDICATIONS: NONE NEW PRESCRIPTIONS: Doxycycline Hyclate 100 mg PO BID KELI x 7 days Prednisone (Prednisone 10 Mg Tablet) 10 mg PO BIDWM KELI X 5 DAYS THEN DAILY X 5 DAYS THEN STOP Promethazine HCl/Codeine (Promethazine/Codeine Syrup 6.25/10 Mg/5 Ml Disp.Syringe) 10 ml PO QID PRN X 5 DAYS KEFLEX 500 MG PO BID X 7 DAYS SMOKING: N/A DISEASE SPECIFIC EDUCATION: BILATERAL PNEUMONIA STREPTOCOCCUS PNEUMONIAE RT PLEURISY COPD NEW MEDS ACTIVITY PANDEMIC PRECAUTIONS LAB REVIEW: 02/24/21 04:54 02/24/21 04:54 02/24/21 04:54: Sodium 140.7, Potassium 3.52, Chloride 107.4 H, Carbon Dioxide 27.0, Anion Gap 9.82, BUN 16.6, Creatinine 0.67, Estimated GFR (MDRD) 118.00, BUN/Creatinine Ratio 24.77, Glucose 165.9 H, Calcium 8.99, Total Bilirubin 0.23, AST 29.5, ALT 24.9, Alkaline Phosphatase 68.9, Total Protein 6.45, Albumin 3.66, Globulin 2.79, Albumin/Globulin Ratio 1.31 02/24/21 04:54: WBC 9.01, RBC 3.89 L, Hgb 11.4 L, Hct 35.3 L, MCV 90.7, MCH 29.3, MCHC 32.3, RDW Coeff of Martha 13.7, Plt Count 229, Immature Gran % (Auto) 0.7, Neut % (Auto) 85.2 H, Lymph % (Auto) 8.3 L, [place] % (Auto) 5.8, Eos % (Auto) 0.0, Baso % (Auto) 0.0, Neut # (Auto) 7.7 H, Lymph # (Auto) 0.8, [place] # (Auto) 0.5, Eos # (Auto) 0.0, Baso # (Auto) 0.0, Immature Gran # (Auto) 0.1 ACTIVITY: UP TOLERATED FREQUENTLY WITH REST PERIODS NO HUNTING OR WORKING FOR 7 DAYS PANDEMIC PRECAUTIONS DIET: HEART HEALTHY WITH ADDED PROTEIN HOSPITAL COURSE: 65 year old white male hospitalized with bilateral pneumonia and shortness of breaht. The patient was aggressively treated with antibiotics, steroids, NEBS and inhalers. The patient never had fever or leukocytosis. It seems the patient may have had viral infection with bilateral pneumonia or inhalation of irritant from working on [employer] with questionable mold. He had a saturation of more than 95% on room air. He has been up and about feeling a lot better. His appetite has improved. Echo showed normal LV ejection fraction of 50-55% and hypokinetic septal wall noted a couple of years ago on echo. Echo is unchanged. No evidence of CHF or coronary insufficiency. Labs have been acceptable showed hyperglycemia with steroid therapy. He will be discharged on steroids and antibiotics. Before discharge he will have three step to determine whether he needs oxygen at home or not. He will also have a PFT. His CT scan findings on x- ray going to be followed as an outpatient. He still has dry crepitations on the right lower base. The patient is COVID negative. TIME SPENT: More than 60 minutes. STEFANOD
[2021-02-24] MEDS: DOXY-100 100 MG in SODIUM CHLORIDE 100ML 100 ML IV SCH (10:32)
--- NOTE | 2021-02-27 11:27 | CM.DICTOOL ---
ADMISSION: 02/21/21 15:16 DISCHARGE: FEBRUARY 24, 2021 DATE OF SERVICE: 02/24/21 FINAL DIAGNOSIS BILATERAL PNEUMONIA ( CHEST CT 02/21/21 ) SPUTUM- STREPTOCOCCUS PNEUMONIAE COPD RT PLEURISY ASTHMA HYPERTENSION MOLE RT SHOULDER COPD FORMER SMOKER CABG 11/22 X 4 , DR. CAMEJO PROSTRATE CANCER , RAY- RADIATION LEFT PLEURAL THICKENING GERD DYSLIPEDEMIA CAD STATUS POST INGUINAL REPAIR 06/23 OSTEOARTHRITIS KNEE PEYROINE'S DISEASE MELANOMA LEFT LEG, DR. DANIELLE @ [facility] BRONCHIAL ASTHMA HYPOGLYCEMIA APPENDECTOMY AGE 104/09 LAST VITALS Temp Pulse Resp BP Pulse Ox 98.6 F 84 18 150/81 H 94 L 02/24/21 05:36 02/24/21 05:36 02/24/21 05:36 02/24/21 05:36 02/24/21 10:00 TAKE THESE MEDICATIONS AT HOME Albuterol Sulfate inhaler 2 puffs q 6 hrs prn Aspirin (Aspirin 81 Mg Tablet.) 81 mg PO DAILYWM [facility] Last Admin: 02/24/21 08:52 Dose: 81 mg Atorvastatin Calcium (Atorvastatin Calcium 20 Mg Tablet) 80 mg PO DAILY [facility] Last Admin: 02/24/21 08:52 Dose: 80 mg SYMBICORT (Budesonide - formoterol)80-4.5 MCG INHALER 1 PUFF BID Last Admin: 02/24/21 04:35 Dose: 1 mg Famotidine (Famotidine 20 Mg Tablet) 20 mg PO QDAC [facility] Last Admin: 02/24/21 05:51 Dose: 20 mg Doxycycline Hyclate 100 mg PO BID [facility] x 7 days -- (NEW) Stop: 02/24/21 20:59 Last Admin: 02/24/21 10:32 Dose: 50 mls/hr Losartan Potassium (Losartan Potassium 25 Mg Tablet) 50 mg PO DAILY [facility] Last Admin: 02/24/21 08:52 Dose: 50 mg Meloxicam (Meloxicam 7.5 Mg Tablet) 15 mg PO MoTuWeThFr@0900 [facility] Last Admin: 02/22/21 09:02 Dose: 15 mg Prednisone (Prednisone 10 Mg Tablet) 10 mg PO BIDWM KELI X 5 DAYS THEN DAILY X 5 DAYS THEN STOP -- ( NEW) Last Admin: 02/24/21 08:52 Dose: 10 mg Promethazine HCl/Codeine (Promethazine/Codeine Syrup 6.25/10 Mg/5 Ml Disp.Syringe) 10 ml PO QID PRN X 5 DAYS -- ( NEW) PRN Reason: PAIN WITH COUGHING Last Admin: 02/23/21 13:23 Dose: 5 ml Tamsulosin HCl (Tamsulosin Hcl 0.4 Mg Cap.Er.24h) 0.4 mg PO DAILY KELI Last Admin: 02/24/21 08:52 Dose: 0.4 mg Tramadol HCl (Tramadol Hcl 50 Mg Tablet) 50 mg PO DAILY PRN PRN Reason: Pain SILDENAFIL 50 MGPO DAILY PRN KEFLEX 500 MG PO BID X 7 DAYS -- ( NEW) ALLERGIES docosanol [From Abreva] Allergy (Mild, Verified 03/29/18 12:30) Rash DISCONTINUED MEDICATIONS NONE NEW PRESCRIPTIONS: Doxycycline Hyclate 100 mg PO BID KELI x 7 days Prednisone (Prednisone 10 Mg Tablet) 10 mg PO BIDWM KELI X 5 DAYS THEN DAILY X 5 DAYS THEN STOP Promethazine HCl/Codeine (Promethazine/Codeine Syrup 6.25/10 Mg/5 Ml Disp.Syringe) 10 ml PO QID PRN X 5 DAYS KEFLEX 500 MG PO BID X 7 DAYS SMOKING: N/A DISEASE SPECIFIC EDUCATION: BILATERAL PNEUMONIA STREPTOCOCCUS PNEUMONIAE RT PLEURISY COPD NEW MEDS ACTIVITY PANDEMIC PRECAUTIONS LAB REVIEW: 02/24/21 04:54 02/24/21 04:54 02/24/21 04:54: Sodium 140.7, Potassium 3.52, Chloride 107.4 H, Carbon Dioxide 27.0, Anion Gap 9.82, BUN 16.6, Creatinine 0.67, Estimated GFR (MDRD) 118.00, BUN/Creatinine Ratio 24.77, Glucose 165.9 H, Calcium 8.99, Total Bilirubin 0.23, AST 29.5, ALT 24.9, Alkaline Phosphatase 68.9, Total Protein 6.45, Albumin 3.66, Globulin 2.79, Albumin/Globulin Ratio 1.31 02/24/21 04:54: WBC 9.01, RBC 3.89 L, Hgb 11.4 L, Hct 35.3 L, MCV 90.7, MCH 29.3, MCHC 32.3, RDW Coeff of Martha 13.7, Plt Count 229, Immature Gran % (Auto) 0.7, Neut % (Auto) 85.2 H, Lymph % (Auto) 8.3 L, [place] % (Auto) 5.8, Eos % (Auto) 0.0, Baso % (Auto) 0.0, Neut # (Auto) 7.7 H, Lymph # (Auto) 0.8, [place] # (Auto) 0.5, Eos # (Auto) 0.0, Baso # (Auto) 0.0, Immature Gran # (Auto) 0.1 PLAN: DISCHARGE: HOME FEBRUARY 24, 2021 WITH FAMILY, HE HAS BEEN INDEPENDENT ACTIVITY: UP TOLERATED FREQUENTLY WITH REST PERIODS NO HUNTING OR WORKING FOR 7 DAYS PANDEMIC PRECAUTIONS DIET: HEART HEALTHY WITH ADDED PROTEIN FOLLOW UP: SEE DR. STEEL/ ABNER RANDHAWA APRN/ CRISTIAN PALACIOS APRN IN THE OFFICE ON MARCH 06, 2021 @ 8:30 AM CODE STATUS: FULL CODE MR JAMES IS ALERT AND ORIENTED X 4. HE HAS REMAINED AFEBRILE. HE HAS USED OXYGEN AT TIMES, HOWEVER, 3 STEP REVEALED HE DID NOT NEED ANY HOME OXYGEN AND HE IS NO LONGER SOA WITH ACTIVITY. RLL STILL HAS SOME COARSENESS AND BILATERAL D IMINISHED. HE STILL HAS A PRODUCTIVE COUGH WITH SCANT LIGHT CREAMY YELLOW. SKIN IS WARM AND DRY AND INTACT. NUTRITIONAL AND FLUID INTAKE IS OPTIMAL. HE IS UP INDEPENDENTLY.LIVES WITH AND OTHER FAMILY MEMBERS. HE HAS BEEN INSTRUCTED NO WORKING AND HUNTING FOR 7 DAYS AND HE AGREED. MD ABNER PAT APRN ALYCE HANNAN, APRN
--- NOTE | 2021-02-28 13:14 | PN ---
DATE OF SERVICE: 02/22/21 SUBJECTIVE: 65 year old white male hospitalized with bilateral pneumonia and infiltrate with shortness of breath, cough and congestion for couple of weeks duration. His condition has improved. He is being treated with steroids, antibiotics and NEBS. The patient had quit smoking 5 years ago. REVIEW OF SYSTEMS: CONSTITUTIONAL: No night sweats. No fatigue, malaise, lethargy. No fever or chills. HEENT: Eyes: No visual changes. No eye pain. No eye discharge. ENT: No runny nose. No epistaxis. No sinus pain. No sore throat. No odynophagia. No congestion. RESPIRATORY: Cough much better, no congestion. No hemoptysis. No shortness of breath. Breathing better. Pleuritic pain better which was posteriorly on the right side. CARDIOVASCULAR: No angina symptoms. No CHF symptoms. No atypical chest pain for CAD. No palpitations. No PND. No orthopnea. GASTROINTESTINAL: No abdominal pain. No nausea or vomiting. No diarrhea or constipation. No hematemesis. No hematochezia. GENITOURINARY: No urgency. No frequency. No dysuria. No hematuria. No obstructive symptoms. No discharge. No pain. No significant abnormal bleeding. MUSCULOSKELETAL: No musculoskeletal pain; no joint swelling. NEUROLOGICAL: No headache. No neck pain. No syncope. No seizures. No dizziness. PSYCHIATRIC: Not anxious. No depression. No suicidal thoughts. No homicidal thoughts. SKIN: No rash. No lesions. No wounds. ENDOCRINE: No unexplained weight loss. No weight gain. HEMATOLOGIC/LYMPHATIC: No anemia. No purpura. No petechiae. No prolonged or excessive bleeding. No palpable lymph nodes. PHYSICAL EXAMINATION: VITAL SIGNS: Temperature 97.4, pulse 80, respiratory rate 18, blood pressure 130/65, pulse ox 95%. HEENT: Head normocephalic, atraumatic. Eyes: Extraocular muscles are intact. Pupils are equal, round and reactive to light and accommodation. Ears: No lesions. Nose appeared normal. Throat: No exudate or erythema. NECK: Supple. No JVD, no carotid bruit. No lymphadenopathy or thyromegaly. LUNGS: Decreased breath sounds but clear to auscultation. Percussion note normal. Chest symmetrical. HEART: S1, S2, no S3. No murmurs. No cyanosis or clubbing. No ascites. Pulses: Dorsalis pedis and posterior tibial pulses +1 to +2 bilaterally. ABDOMEN: Soft. Nontender. Bowel sounds active. No CVA tenderness. No mass felt. EXTREMITIES: No edema. Full range of motion of all extremities, equal. NEUROLOGIC: No focal deficit. Cranial nerves II through XII are grossly intact. No headache. No double vision. SKIN: Not dry. Intact. Turgor - normal. LYMPHATIC: No palpable lymph nodes/no lymphedema. MUSCULOSKELETAL: Normal joints with no swelling. Muscle tone is normal. LABS: Hgb 11.9, hct 37, WBC 8,300 normal differential, creatinine 0.7, BUN 17, potassium 4.1. glucose 276. ASSESSMENT: 1. Bilateral pneumonitis 2. Chronic lung disease 3. History of smoking, quit 5 years ago 4. Dyslipidemia 5. Hyperglycemia PLAN: 1. A1c 2. Prednisone 10mg BID daily 3. Discontinue Solu-Cortef from tomorrow 4 T4 TSH 5. 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 The patient says that throughout this illness for past week or so he never had any fever or chills. COVID negative. 6. Arterial blood gasses done yesterday showed pO2 61, pCO2 42, pH 7.44 with 92% saturation on room air. 2. 3. TIME SPENT: More than 30 minutes. Plan and coordination of the patient's care discussed in the presence of nurse. JANNA
--- NOTE | 2021-02-28 13:45 | PN ---
DATE OF SERVICE: 02/23/2021 SUBJECTIVE: The patient was seen and examined with the Nurse Practitioner. The patient's says that he is feeling a lot better than what he was when he came in. His coughing is much less. No fever. no chills. Echocardiogram showed mildly hypokinetic septal wall, ejection fraction 50-55%. LV size is normal. LA size is mildly enlarged. Valvular structures are normal. There is calcific mitral valve anulus TIME SPENT: More than 30 minutes. Plan and coordination of the patient's care discussed in the presence of nurse. JANNA
== END 2021-02-24 14:50 | disposition home or self-care (01) | DRG 194 ==
LOC: RAD 07:41 → MEDSURG A 15:16
PROVIDERS: ADMIT Internal Medicine; ATTEND Internal Medicine
DX: Z20.822 Contact with and (suspected) exposure to COVID-19; J45.909 Unspecified asthma, uncomplicated; E78.5 Hyperlipidemia, unspecified; J15.4 Pneumonia due to other streptococci; R09.1 Pleurisy; R06.02 Shortness of breath; I50.1 Left ventricular failure, unspecified; K21.9 Gastro-esophageal reflux disease without esophagitis; J44.1 Chronic obstructive pulmonary disease with (acute) exacerbation; I10 Essential (primary) hypertension; I25.810 Atherosclerosis of coronary artery bypass graft(s) without angina pectoris